=== PATIENT | female | born 1950 | race Caucasian/White ===

== ENCOUNTER 2021-12-27 06:42 | Day surgery (SDC) | payer MEDICARE, BC, SELFPAY ==
[2021-12-27] VITALS (26 sets, daily range): BP systolic 134–176; BP diastolic 72–103; PULSE 73–97; RESP 16–22; TEMP 36.5–36.8; O2SAT 92–100; BMI 38.1
[2021-12-27] MEDS: OXYCODONE (CR) 10 MG TAB.ER.12H PO (07:05)
[2021-12-27] MEDS: ACETAMINOPHEN 500 MG TABLET 1000 MG PO (07:05)
[2021-12-27] MEDS: CELECOXIB 200 MG CAPSULE PO (07:05)
[2021-12-27] MEDS: SODIUM CHLORIDE 0.9 % (FLUSH) 10 ML SYRINGE IVF (07:45)
[2021-12-27] MEDS: LACTATED RINGERS 1000 ML 1,000 ML 100 ML IV (07:45)
[2021-12-27] MEDS: fentaNYL 100 MCG/2 ML inj IVP (07:46)
[2021-12-27] MEDS: MIDAZOLAM HCL 1 MG/ML inj IVP (07:46)
--- NOTE | 2021-12-27 07:55 | SUR.PREOP ---
TIME?OUT:?0744 PT/RN/MDA?VERIFICATION?OF?SURGICAL?SITE,?PROCEDURE,?AND?CONSENT OBTAINED?PRIOR?TO?INVASIVE?PROCEDURE.
[2021-12-27] MEDS: CEFAZOLIN 2 GM INJ IVP (08:26)
--- NOTE | 2021-12-27 08:39 | SUR.OPER ---
Patient transfered from Same Day Surgery to OR2 via bed. Patient was assisted to the OR bed. Warm blankets x2 applied to provide warmth and comfort.
--- NOTE | 2021-12-27 10:00 | P.NB_ITS ---
Nerve Block Nerve Block Time Seen by Provider: 07:30 Type of block requested by surgeon for post-operative analgesia: axillary Side: right Time out performed: Yes Verification of patient name: Yes Verification of date of : Yes Site marking: site marked Name of person performing procedure: Bennett Continuous monitoring Was continuous monitoring of O2 sat, B/P, office electrician, recorded every 15 minutes?: Yes Procedure Checklist: sterile prep, needles and gloves Ultrasound guided. Images saved: Yes Medications given in 5ml increments after negative aspiration: Ropivicaine %: 0.5 mL: 30 Needle gauge: 22 Patient tolerated procedure well: Yes Additional comments: Needle noted adjacent to nerve Block Charges Block Charge (with Pro Fee): Brachial Plexus Use of Ultrasound Machine for Block: Yes- US Guidance/pain block
[2021-12-27] MEDS: fentaNYL 100 MCG/2 ML inj 50 MCG IVP ×2 (11:00→11:14)
[2021-12-27] MEDS: HYDROmorphone 0.5 mg/0.5 ml inj IVP ×3 (11:10→11:34)
--- NOTE | 2021-12-27 11:18 | W.ANESCHARGE ---
Anesthesia Charges Start Date/Time Anesthesia Start Date: 12/27/21 Anesthesia Start Time: 08:20 Stop Date/Time Anesthesia Stop Date: 12/27/21 Anesthesia Stop Time: 10:48 Summary Emergency: No
--- NOTE | 2021-12-27 11:58 | PM.ORPRC ---
Procedure Note Date of procedure: 12/27/21 Procedure: SURGEON: Daniele Bishop MD [facility] OPERATOR: Jordana Wang PA-C PREOPERATIVE DIAGNOSIS: Right thumb CMC joint osteoarthritis POSTOPERATIVE DIAGNOSIS: Right thumb CMC joint osteoarthritis NAME OF OPERATION: Right thumb CMC arthroplasty (LRTI), EPB transfer ANESTHESIA: Axillary block plus general ESTIMATED BLOOD LOSS: 0 mL COMPLICATIONS: None SPECIMENS: None DRAINS: None PREOPERATIVE ANTIBIOTICS: Ancef 2 grams INDICATIONS: The patient is a 71-year-old female with a history of right thumb CMC joint osteoarthritis. Despite appropriate nonoperative management, including activity modification, antiinflammatories, [id number]-[id number] pain medication, bracing, occupational therapy, and injections they continue to have pain and disability. Operative intervention was offered. The risks, benefits and expected outcomes were discussed in detail. These included but were not limited to: Infection, bleeding, injury to blood vessel or nerve, venous thromboembolism. All questions were answered to their satisfaction. Use of an print shop assistant was necessary for patient positioning, soft tissue retraction, wound closure and dressing and splint application. PROCEDURE: An axillary block was placed by anesthesia. The patient was placed supine on the operating room table. General anesthesia was administered. The right upper extremity was prepped and draped in the usual sterile fashion. The limb was exsanguinated with the Dannie bandage. The pneumatic tourniquet was inflated to 250 mmHg. A longitudinal incision was made just dorsal to the 1st dorsal compartment at the base of the thumb. Subcutaneous dissection was taken with tenotomy scissors. Several small crossing veins were cauterized and divided. The base of the metacarpal was exposed. The CMC joint capsule was incised longitudinally. Subperiosteal dissection of the trapezium was carried both dorsally and volarly. Likewise, the base of the thumb metacarpal was subperiosteally exposed. The radial sensory nerve was encountered and was carefully protected throughout the case. The trapezium was dissected free with the 15 blade and the [place] elevator. It was removed intact. Attention was then turned to the FCR graft harvest. A transverse incision was made at the musculotendinous junction of the FCR in the volar forearm. Subcutaneous dissection was taken with tenotomy scissors to the tendon. The tendon was freed up from the muscle fibers and was divided transversely. We then pulled the tendon graft into the distal incision at the base of the thumb. We placed a 2-0 FiberWire suture in the deep capsule. A 2.8 mm socket was drilled on the radial side of the base of the index finger metacarpal. A loop of labral tape was placed in the socket and secured with a 3 mm x 8 mm BioComposite anchor. A guide pin was drilled through the dorsum of the base of the thumb metacarpal exiting at the volar peak of the base of thumb metacarpal. A 5 mm tunnel was drilled. The tendon passer was placed through the tunnel. We pulled the tendon graft and both limbs of the labral tape into the tunnel. We maximally tensioned the graft and then placed a 4.75 x 15 mm Arthrex BioComposite tenodesis screw just distal to the graft. The graft was then pulled proximally and was secured to the dorsal bone of the base of the metacarpal with 2-0 FiberWire suture x2. We then used our previously placed 2-0 FiberWire suture in the deep capsule and folded the graft back and forth over these sutures. The graft was placed in the depth of the wound and this FiberWire suture was tied over the top to secure it in position. Given the amount of hyperextension through the thumb MP joint we elected to transfer the extensor pollicis brevis tendon. It was therefore freed up and was divided just proximal to the MP joint. It was then secured to the periosteum of the thumb metacarpal, proximal to the MP joint with a 3-0 FiberWire x2. The wound was irrigated with normal saline. The capsule was closed with a 3-0 Vicryl in an interrupted vgyzmd-[id number]-[id number] fashion. Wounds were closed with the 3-0 Vicryl and a 4-0 Monocryl. Glue was used to seal the skin. A dry dressing and short-arm thumb spica splint were applied, the tourniquet was released. Sponge and needle counts were correct x 2. The patient tolerated the procedure well. There were no apparent complications. They were carefully transferred to the hospital bed and taken to the postanesthesia care unit in satisfactory condition. PLAN: The patient will be discharged to home. They will work on ice and elevation of the hand. They will follow up in the office next week for wound check and three views of the thumb, out of the splint prior to being seen, and preparation for thumb spica cast immobilization until 6 weeks postop.
--- NOTE | 2021-12-27 12:05 | W.ANESCHARGE ---
Anesthesia Charges Start Date/Time Anesthesia Start Date: 12/27/21 Anesthesia Start Time: 08:20 Stop Date/Time Anesthesia Stop Date: 12/27/21 Anesthesia Stop Time: 10:48 Summary Emergency: No
--- NOTE | 2021-12-27 13:39 | SUR.PHASEII ---
Family member notified patient feeling nauseous. Emesis bag provided. Patient up in recliner. O2 sats 87-92%. Oxygen applied 2 L NC - O2 sats 93%. Nausea subsided. Patient provided water. Family at the bedside. Call light within reach. Senior Revenue Accountant stressed importance of pt wearing CPAP at home.
== END 2021-12-27 14:35 | disposition home or self-care (01) ==
PROVIDERS: PCP Student in an Organized Health Care Education/Training Program; Visit Provider Orthopaedic Surgery
PROC: (CPT 25447; principal; 2021-12-27 08:00)
DX: M18.11 Unilateral primary osteoarthritis of first carpometacarpal joint, right hand (principal)
CPT/HCPCS: 25447; 20924; 01830; 64415; 76942; A4580; A9270; C1713; J0690; J1100; J1170; J2250; J2405; J2704; J2795; J3010; J7120

== ENCOUNTER 2022-04-23 13:00 | Outpatient (RCR) | payer MEDICARE, BC, SELFPAY ==
--- NOTE | 2022-04-23 14:34 | OT.OPODN ---
OT Outpatient Ortho Daily Note OT Outpatient Ortho Daily Note Start: 01/02/22 13:08 Freq: Status: Active Protocol: Document 04/23/22 14:29 AMB (Rec: 04/23/22 14:32 AMB [id number]) E-signed By Ana Smith, OTR/L, CLT, COMBINATION MACHINE TOOL SETTER Type of Note Type of Note Type of Note Recert/Progress Note Visit Number [id number] Insurance Information Insurance Information Medicare B Outpatient History/Precautions Current Condition/Medical Diagnosis Referring Provider Dr Bishop Treatment Diagnosis RUE CMC Arthroplasty Date of Onset 12/27/21 Precautions Lifting Restrictions,Range of Motion Medical/Functional History Medical History Reviewed Yes Prior Level of Function/Mobility Pt was seen in OT from 05/09/21 through 06/06/21 and received services for the OA in her RUE CMC joint. Pt received partial relief with therapy and a cortisone injection, however, it did not last and pt opted for CMC arthroplasty. PMH: Active Problems (Updated 11/28 @ 10:28 by Evie Tapia) Osteoarthritis of carpometacarpal (CMC) joint of right thumb (Acute) M18.11 Seasonal allergies (Acute 20/02) J30.2 Postmenopausal state (Acute ) Z78.0 Obesity (Acute 11/11/06) E66.9 Insomnia (Acute 09/20/09) G47. 00 Hypertension (Acute 11/11/06) I10 Exercise-induced asthma (Acute 09/20/09) J45.990 Depression (Acute 11/11/06) F32.A Closed head injury (Acute) S09 .90XA Chronic sinusitis (Acute) J32. 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 Still feels weak, new exs that were issued at last visit were helpful. Pain Assessment Pain Present Pain Present Pain Reported Location Right Hand Description Dull, Achy,Throbbing Intensity .5 OT OP Daily Ortho Note/Assessment Therapeutic Exercise Therapeutic Exercise Minutes (minutes) 5 Therapeutic Exercise Comments Review of new exs for strengthening Ultrasound Ultrasound Location & Joint Position RUE radial hand/wrist/palm for anti-inflammatory and circulatory benefit as well as scar tissue management. Ultrasound Frequency & Mode 1 MHz Pulsed Intensity (w/cm2) 1.5 Ultrasound Duration 10 Manual Therapy Manual Therapy Minutes (minutes) 15 Manual Therapy Comments Provided gentle MT with focus on retrograde massage and very gentle AAROM of the RUE fingers, thumb, wrist and forearm. Scar mobilization and gentle AAROM of wrist and fingers. Goniometric Comments Goniometric Comments Goniometric Comments 04/16/22AROM of the RUE wrist flexion is 75, ext is 70, UD is 30, RD is 35, opposition is full, thumb AROM ext is limited to 45, and IP is limited to 50. 03/19/22 AROM of the RUE wrist flexion is 65, ext is 60, UD and RD are both 30, opposition is full, thumb AROM is full. 02/15/22 AROM of the RUE wrist flexion is 55, ext is 55, UD is 25, RD is 25. RUE thumb opposition is to base of 5th digit, IP is 50, MP is 50, radial abd is 45, palmar abd is 55. 01/31/22 AROM of the RUE wrist flexion is 25, extension is 30 , UD is 20, RD is 20. 01/02/22 AROM of BUE is WNL throughout with the exception of the RUE hand / wrist. AROM of the RUE wrist flexion is 10, ext is 10, UD is 5, RD is 5. AROM of the RUE forearm pronation and supination are both 70. AROM of the RUE thumb MP flexion is 10, radial and palmar abd are both 5, IP is 10. Pt is able to complete a composite fist to - 2cm from tip of 3rd digit to DPC. Pt is very guarded. Hand Pinch/Correctional Corporal Strength Hand Right Correctional Corporal Strength Position 1 (lbs) 35 Lateral Pinch Strength (lbs) 6 Three Point Pinch (lbs) 9 Left Correctional Corporal Strength Position 1 (lbs) 58 Lateral Pinch Strength (lbs) 10 Three Point Pinch (lbs) 18 Comments Comments 04/23/22 MMT of wrist flexion is 4/5, ext is 4-/5 professional engineer and pinch 4-/5. (dynamometer was not available today) Edema Assessment Location Right Hand Edema Type None Description Subjective Edema Description Tightness Additional Information Comments Minimal swelling is present at the radial hand / wrist. OT Objective Data Hand Hand Dominance Right Skin/Wounds Skin Integrity Comments Incision is completely healed. OT Problems Problems Problems Decreased Strength,Decreased Range of Motion,Decreased Dexterity,Decreased Fine Motor ,Decreased Coordination, Lifting,Gripping,Pinching Other Problems Writing,Opening Containers, Dressing,Computer,Fasteners Patient Potential Good Assessment Assessment Assessment Pt really liked the advanced strengthening, no pain with resistance. Occupational Therapy Treatment Plan - OP Potential Rehabilitation Potential Good Set Goals Goals Set with Patient Yes Goals Goals 1. Pt will be independent and compliant with HEP in order to resume full, pain-free use of the involved UE. 3 weeks 2. Pt will demonstrate full, pain-free AROM of the involved UE in order to improve ability to grasp and hold. 6 weeks 3. Pt will demonstrate pain- free professional engineer and pinch strength comparable to the uninvolved side in order to improve functional grasp, hold, reach, and lifting ability needed to complete self-care, leisure tasks, and work activities. 8 weeks. Progress set Treatment Plan Treatment Plan Evaluation,Edema Control,Joint Mobilization,Manual Therapy, Splinting,Ultrasound, Therapeutic Exercise, Therapeutic Activities,Self- Care/Home Management Expected Frequency 1-2x Week Expected Duration 8-10 Weeks OT Treatment Minutes Treatment Minutes Timed Treatment Minutes 30 Total Treatment Minutes 30 Occupational Therapy Billing Units Billing Units Manual Therapy 1 Ultrasound 1 Certification Certification I Certify That: Therapy Services Provided, Therapy Plan Established, Therapy Plan Reviewed Recertification Information Recertification Information Initial Certification Date 01/02/22 Recertification Start Date 04/02/22 Recertification Due Date 06/30/21 Reasons to Continue Skilled Therapy Pt continues to progress with improved ROM and strength. However, pt is still somewhat limited in RUE wrist and thumb ROM, also demonstrates limited professional engineer and pinch strength which impairs her ability to complete higher level cleaning and cooking tasks which require heavier gripping and pinching. Pt has missed several sessions in the month of February and March partly due to her being ill and partly due to marketing underwriter being ill. Pt will benefit from extending her therapy for an additional 6 weeks to address final strength and activity tolerance as well as to achieve full ROM. Rehabilitation Potential Good Continued Plan of Care and Interventions US, MT, TE, TA, pt education. Provider Signature Shows Agreement With POC & Medical Necessity Physician Comment/Change Comment or Changes Physician NPI Number #
== END 2022-06-26 13:11 | disposition home or self-care (01) ==
PROVIDERS: PCP Student in an Organized Health Care Education/Training Program; Visit Provider Orthopaedic Surgery
DX: Z48.89 Encounter for other specified surgical aftercare (principal); Z51.89 Encounter for other specified aftercare
CPT/HCPCS: 97035; 97110; 97140; 97165; L3806; X5282

== ENCOUNTER 2022-07-12 14:15 | Outpatient (RCR) | payer MEDICARE, BC, SELFPAY | END 2022-11-14 23:59 | disposition home or self-care (01) | PROVIDERS: PCP Student in an Organized Health Care Education/Training Program; Visit Provider Student in an Organized Health Care Education/Training Program | DX: M25.531 Pain in right wrist (principal); M65.312 Trigger thumb, left thumb; Z51.89 Encounter for other specified aftercare | CPT/HCPCS: 97035; 97140; 97165; 97535 ==

== ENCOUNTER 2024-01-07 14:45 | Outpatient (RCR) | payer MEDICARE, BC, SELFPAY | END 2024-01-07 16:06 | disposition home or self-care (01) | PROVIDERS: PCP Student in an Organized Health Care Education/Training Program; Visit Provider Family Medicine | DX: M17.12 Unilateral primary osteoarthritis, left knee (principal); Z51.89 Encounter for other specified aftercare | CPT/HCPCS: 97110; 97140; 97161 ==

== ENCOUNTER 2024-03-08 06:58 | Day surgery (SDC) | payer MEDICARE, BC, SELFPAY ==
[2024-03-08] VITALS (23 sets, daily range): BP systolic 132–176; BP diastolic 70–99; PULSE 62–87; RESP 14–22; TEMP 36.3–37.1; O2SAT 93–100; BMI 41.1
[2024-03-08] MEDS: OXYCODONE (CR) 10 MG TAB.ER.12H PO (06:59)
[2024-03-08] MEDS: ACETAMINOPHEN 500 MG TABLET 1000 MG PO ×3 (06:59→20:14)
[2024-03-08] MEDS: fentaNYL 100 MCG/2 ML inj IVP (06:59)
[2024-03-08] MEDS: LACTATED RINGERS 1000 ML 1,000 ML 100 ML IV (07:00)
[2024-03-08] MEDS: MIDAZOLAM HCL 1 MG/ML inj IVP (07:00)
--- NOTE | 2024-03-08 07:20 | W.PM.H&PU ---
History & Physical Update History & Physical Update H&P Reviewed and patient assessed: No changes noted
--- NOTE | 2024-03-08 07:23 | CRLHL7_ITS ---
For Patients: As a result of the Cures Act, medical imaging exams and procedure reports are released immediately into your electronic medical record. You may view this report before your referring provider. If you have questions, please contact your health care provider. INDICATION: Post operative knee arthroplasty TECHNIQUE: Knee radiograph 2 views left COMPARISON: 01/02/2024 FINDINGS: Bone: No acute fractures or aggressive bone lesions are identified. Joint: The patient is status post a total knee arthroplasty with patellar resurfacing. No significant knee effusion is seen. Soft tissue: Anterior subcutaneous gas and joint gas are present from recent surgery. No radiopaque foreign bodies are seen. IMPRESSION: 1. There is an unremarkable postoperative appearance of the knee arthroplasty. Dictated by: Zeferino Napoles MD @ 03/08/2024 12:56:29 (Electronically Signed)
[2024-03-08] MEDS: SODIUM CHLORIDE 0.9 % (FLUSH) 10 ML SYRINGE IVF (08:30)
[2024-03-08] MEDS: TRANEXAMIC ACID 100 MG/ML INJ 1000 MG IV (08:30)
--- NOTE | 2024-03-08 08:33 | SUR.PREOP ---
TIME?OUT:?0818 PT/RN/MDA?VERIFICATION?OF?SURGICAL?SITE,?PROCEDURE,?AND?CONSENT OBTAINED?PRIOR?TO?INVASIVE?PROCEDURE. left knee mda rn pt and consent
[2024-03-08] MEDS: CEFAZOLIN 2 GM in 0.9 % SODIUM CHLORIDE Mini-bag 100 ML IVPB ×3 (08:35→22:24)
--- NOTE | 2024-03-08 09:38 | W.ANESCHARGE ---
Anesthesia Charges Start Date/Time Anesthesia Start Date: 03/08/24 Anesthesia Start Time: 08:31 Stop Date/Time Anesthesia Stop Date: 03/08/24 Anesthesia Stop Time: 10:40 Summary Extremes of Age - Over 70 or under 1: MDA
--- NOTE | 2024-03-08 09:38 | W.PM.NB ---
Nerve Block Nerve Block Time Seen by Provider: 08:25 Date Seen: 03/08/24 Type of block requested by surgeon for post-operative analgesia: adductor canal Side: left Time out performed: Yes Verification of patient name: Yes Verification of date of : Yes Site marking: site marked Name of person performing procedure: Bennett Continuous monitoring Was continuous monitoring of O2 sat, B/P, groundwater monitoring technician, recorded every 15 minutes?: Yes Procedure Checklist: sterile prep, needles and gloves Ultrasound guided. Images saved: Yes Medications given in 5ml increments after negative aspiration: Marcaine %: 0.25 mL: 15 Needle gauge: 20 Precedex (mcg): 25 Patient tolerated procedure well: Yes Block Charges Block Charge (with Pro Fee): Femoral Nerve Use of Ultrasound Machine for Block: Yes- US Guidance/pain block
--- NOTE | 2024-03-08 09:39 | W.PM.NB ---
Nerve Block Nerve Block Time Seen by Provider: 08:25 Date Seen: 03/08/24 Type of block requested by surgeon for post-operative analgesia: geniculars Side: left Time out performed: Yes Verification of patient name: Yes Verification of date of : Yes Site marking: site marked Name of person performing procedure: Bennett Continuous monitoring Was continuous monitoring of O2 sat, B/P, traffic monitor specialist, recorded every 15 minutes?: Yes Procedure Checklist: sterile prep, needles and gloves Ultrasound guided. Images saved: Yes Medications given in 5ml increments after negative aspiration: Marcaine %: 0.25 mL: 9 Needle gauge: 25 Patient tolerated procedure well: Yes Block Charges Block Charge (with Pro Fee): Genicular Nerve Block
--- NOTE | 2024-03-08 10:02 | P.ORPRC_ITS ---
Procedure Note Date of procedure: 03/08/24 Procedure: PREOPERATIVE DIAGNOSIS: 1. Left knee osteoarthritis, primary, severe 2. Morbid obesity-BMI 41.1 POSTOPERATIVE DIAGNOSIS: 1. Left knee osteoarthritis, primary, severe 2. Morbid obesity-BMI 41.1 PROCEDURE: 1. Left total knee arthroplasty - subvastus; modifier 22... 33% added time and difficulty for this case due to patient's increased body habitus and body mass (112 kg; BMI 41.1). This increased body mass report increased retractor number, size, and number of assistants to help with the procedure. SURGEON: Satish Gleason MD. CERAMIC TILER: AIDA Laird - Of note, a skilled nurse practitioner physicians assistant was critical for this case to aid in patient positioning, tissue retraction, limb manipulation/positioning, and closure. ANESTHESIA: Spinal anesthetic EBL: 50ml IMPLANTS: DePuy J&J all cemented TKA - Attune PS femur size 4 with a 50 mm stem, size 3 tibia with a 30 mm stem, 5 mm poly spacer, 35 mm patella TOURNIQUET: 100 minutes at 300 torr COMPLICATIONS: None evident INDICATIONS: The patient is a pleasant 73-year-old female who has experienced severe left knee pain and difficulty bearing weight. Workup included x-rays which revealed severe osteoarthrosis in the knee. Given the deformity, the dysfunction, and the pain, as well as the failure of nonoperative management, recommendation was made for surgery. FINDINGS: BMI 41.1 had increased soft tissue mass and dissection as well as increased difficulty throughout the case with visualization and tissue mobility. Severe patellofemoral osteoarthrosis. Also significant chondromalacia medial and lateral compartments with degenerative mediolateral meniscus pathology. DESCRIPTION OF PROCEDURE: Following a thorough discussion of risks, benefits, and alternatives consent was obtained and the left knee was marked. The patient was brought to the operating room and placed supine on the operating table. Induction of anesthesia was undertaken. 2 g IV Ancef and 1 g tranexamic acid was administered within 1 hr of incision preoperatively. Proper time-out was performed identifying proper patient, site, procedure. The operative extremity was prepped and draped in the appropriate sterile fashion using ChloraPrep after the patient was positioned supine with all bony prominences well padded. A longitudinal, anterior, midline skin incision was made starting approximately 3cm proximal to the superior pole of the patella and advanced distal to the tibial tubercle. A subvastus approach was utilized. A medial subperiosteal sleeve was created with knife, moore elevator and curved osteotome. The retr opatellar fatpad was resected and the synovium in the suprapatellar pouch excised to visualize the anterior femoral cortex. Femoral preparation was performed via an intramedullary guide. Step drill allowed access into the femoral canal. The distal cutting guide was placed with 5? of valgus and 10 mm cut on the distal femur. Femur was sized using a posterior referencing guide in 3? of external rotation. This found have a best fit with the sizing noted above. The 4 in 1 cutting block was then placed, and the distal femur shaped accordingly. The box cut was then created and the trial implant inserted to confirm appropriate fit. The stem was then prepared with the appropriate reamers and a 50 mm stem was applied to the femur eventually. We turned our attention to the proximal tibia. Extramedullary guide was utilized for cutting with the goal of being 90 degree cut from the mechanical axis of the tibia in the varus/valgus plane utilizing tibial crest as the primary alignment. Initially a 2 mm resection was performed from the medial tibial plateau. Ultimately, balancing was achieved in both flexion and extension in both varus and valgus. Of note, the tibial stem preparation was also undertaken and a 30 mm stem was selected. The knee was able to achieve full extension as well, comfortably. The patella was initially measured and found have a thickness of 18 mm. It was resected back to approximately 13.5 mm. It was sized to be a best fit with as noted above. This was drilled, trial placed. All trials were placed and found to have an excellent stability and balance. At this stage, trial implants were removed, the knee was thoroughly irrigated with normal saline, and the cement was mixed. After irrigation, the knee was thoroughly dried, and cement placed, with the real tibial and femoral implants placed along with the patella. Trial poly spacer was placed and confirmed to have excellent range of motion and full extension, and the real poly spacer opened and inserted. All extra cement was removed, and a 3 min Betadine soak performed. Finally, a final irrigation round with normal saline was performed. Closure performed with 0 PDS and #0 Stratafix for the quad tendon/retinaculum. 2-0 Vicryl/Stratafix for the subcutaneous and 4-0 Monocryl for subcuticular closure. Dressings were applied and the patient was awoken from anesthesia after the tourniquet deflated and transferred the PACU in stable condition. A skilled nurse practitioner physicians assistant was critical for this case to aid in patient positioning, tissue retraction, bone exposure, limb manipulation/positioning, patient safety, and closure. PLAN: 1. Weight bear as tolerated operative extremity. 2. 23 hr perioperative antibiotics. 3. Ice. 4. PT/OT consults for ambulation assistance/mobility education. 5. Social work consult for discharge planning. 6. DVT prophylaxis with at SCDs and aspirin twice daily.
--- NOTE | 2024-03-08 10:38 | W.ANESCHARGE ---
Anesthesia Charges Start Date/Time Anesthesia Start Date: 03/08/24 Anesthesia Start Time: 08:31 Stop Date/Time Anesthesia Stop Date: 03/08/24 Anesthesia Stop Time: 10:40
[2024-03-08] MEDS: HYDROmorphone 0.5 mg/0.5 ml inj IVP ×6 (12:00→23:30)
--- NOTE | 2024-03-08 13:07 | PM.IMCN1 ---
Date of Consult Patient: Christopher Patient Consult date: 03/08/24 Requesting Physician: Orthopedics Primary Care Provider: SHAWN MAIN DO Consult Narrative Reason for consult: Hypertension Narrative: Hailey Diallo is a 73 year old female with history of hypertension and known cardiac murmur who underwent an elective left total knee arthroplasty today by Dr. Gleason for severe osteoarthritis. She has a personal history of panic attack with IV placement and took sedative prior to IV insertion today. She told me that her preop time here went very well and she is very happy with the experience today. She is feeling well after surgery and has no complaints. Her pain is currently well controlled. Review of Systems Status of ROS: Reports: 6 or more systems reviewed and unremarkable except as noted in History and below [facility] Medical History (Updated 03/08/24 @ 13:36 by Xiao Bonilla MD) Atherosclerotic coronary vascular disease ?I25.10 - Atherosclerotic heart disease of [place] coronary artery without angina pectoris (ICD-10) Abnormal echocardiogram ?R93.1 - Abnormal findings on diagnostic imaging of heart and coronary circulation (ICD-10) Ascending aorta dilatation ?I77.810 - Thoracic aortic ectasia (ICD-10) Abnormal stress test ?R94.39 - Abnormal result of other cardiovascular function study (ICD-10) Elevated coronary artery calcium score ?R93.1 - Abnormal findings on diagnostic imaging of heart and coronary circulation (ICD-10) Seasonal allergies (09/20/09) ?J30.2 - Other seasonal allergic rhinitis (ICD-10) Postmenopausal state (11/11/06) ?Z78.0 - Asymptomatic menopausal state (ICD-10) Obesity (11/11/06) ?E66.9 - Obesity, unspecified (ICD-10) Chronic sinusitis ?J32.9 - Chronic sinusitis, unspecified (ICD-10) Closed head injury ?S09.90XA - Unspecified injury of head, initial encounter (ICD-10) Hypertension (11/11/06) ?I10 - Essential (primary) hypertension (ICD-10) Exercise-induced asthma (09/20/09) ?J45.990 - Exercise induced bronchospasm (ICD-10) H/O tinnitus (11/11/06) ?Z86.69 - Personal history of other diseases of the nervous system and sense organs (ICD-10) Colonoscopy planned ACP (advance care planning) ?Z71.89 - Other specified counseling (ICD-10) Adenomatous colon polyp ?D12.6 - Benign neoplasm of colon, unspecified (ICD-10) Depression with anxiety ?F41.8 - Other specified anxiety disorders (ICD-10) Ankle enthesopathy ?M77.50 - Other enthesopathy of unspecified foot and ankle (ICD-10) Surgical History (Updated 03/08/24 @ 13:36 by Xiao Bonilla MD) Status post total left knee replacement ?Z96.652 - Presence of left artificial knee joint (ICD-10) History of phacoemulsification of cataract of both eyes with intraocular lens implantation ?Z98.41 - Cataract extraction status, right eye (ICD-10) ?Z98.42 - Cataract extraction status, left eye (ICD-10) ?Z96.1 - Presence of intraocular lens (ICD-10) History of repair of right rotator cuff (~03/2012) ?Z98.890 - Other specified postprocedural states (ICD-10) History of arthroplasty of finger of right hand (12/27/21) ?Z96.691 - Finger-joint replacement of right hand (ICD-10) History of bladder suspension procedure ?Z98.890 - Other specified postprocedural states (ICD-10) ?Z87.448 - Personal history of other diseases of urinary system (ICD-10) H/O: hysterectomy ?Z90.710 - Acquired absence of both cervix and uterus (ICD-10) Family History (Updated 03/08/24 @ 13:17 by Xiao Bonilla MD) Aunt Ovarian cancer Mother Colorectal cancer, Onset Age: 68 Schizophrenia Father Heart disease High blood pressure Social History (Updated 03/08/24 @ 13:18 by Xiao Bonilla MD) Narrative: Never smoker, has not had alcohol since college, denies recreational drugs. Smoking Status: Never smoker How often do you have a drink containing alcohol: never How often do you have six or more drinks on one occasion: Never AUDIT-C Alcohol total score: 0 Non-prescribed substance use: denies use Caffeine: Yes (coffee) Are you using contraception or practicing any form of control: No Meds Home Medications and Allergies Home Medications ?Medication ?Instructions ?Recorded ?Confirmed ?Type hydrochlorothiazide 25 mg tablet 25 mg PO DAILY 11/28/21 03/08/24 History losartan 100 mg tablet 100 mg PO DAILY 11/28/21 03/08/24 History multivitamin 1 tab PO QAM 11/28/21 03/08/24 History trazodone 50 mg tablet 50 mg PO HS 11/28/21 03/08/24 History venlafaxine 75 mg capsule,extended 75 mg PO HS 11/28/21 03/08/24 History release 24 hr calcium 600 mg (as carbonate)-vit 1 tab PO DAILY 12/26/21 03/08/24 History D3 10 mcg (400 unit)-minerals tablet fluticasone propionate 50 1 spray intranasal DAILY PRN 12/26/21 03/08/24 History mcg/actuation nasal spray,suspension (Allergy Relief (fluticasone)) celecoxib 200 mg capsule 200 mg PO Q12H 01/02/24 03/08/24 History isosorbide mononitrate 30 mg 30 mg PO DAILY 01/02/24 03/08/24 History tablet,extended release 24 hr rosuvastatin 40 mg tablet 40 mg PO HS 01/02/24 03/08/24 History albuterol sulfate 90 mcg/actuation 1 - 2 inh inhalation Q4H PRN 03/08/24 03/08/24 History aerosol inhaler aspirin 81 mg capsule 81 mg PO DAILY 03/08/24 03/08/24 History fexofenadine 180 mg tablet 180 mg PO DAILY 03/08/24 03/08/24 History (Allergy Relief (fexofenadine)) Allergies Allergy/AdvReac Type Severity Reaction Status Date / Time amlodipine Allergy Edema Verified 03/08/24 07:21 lisinopril Allergy Rash Verified 03/08/24 07:21 sulfamethoxazole (From Allergy Itching Verified 03/08/24 07:21 Bactrim) terbinafine Allergy Rash Verified 03/08/24 07:21 trimethoprim (From Bactrim) Allergy Itching Verified 03/08/24 07:21 Exam Narrative: Exam Narrative: General: No acute distress. Awake alert oriented x3. Pleasant. HEENT: Normocephalic atraumatic, pupils equally round and reactive to light and accommodation. Oropharynx clear. Mucous membranes are moist. No cervical lymphadenopathy, thyromegaly or carotid bruits. No JVD. Cardiovascular: Regular rate and rhythm. No murmurs, gallops, or rubs. Chest: No increased work of breathing. Clear to auscultation bilaterally. No crackles or wheezes. Abdomen: Bowel sounds present. Soft, nondistended, nontender. No hepatosplenomegaly or masses. Extremities: Left knee bandage is clean, dry, and intact. Trace bilateral lower extremity edema, no cyanosis or clubbing. Skin: No jaundice, no pallor, no rashes. Const: Vital Signs, click to edit/add: Vital Signs - 24 hr 03/08/24 07:50 03/08/24 08:27 03/08/24 10:35 Temperature 97.8 F 97.4 F L Pulse Rate 84 76 71 Respiratory Rate 18 18 14 Blood Pressure 160/86 H 159/87 H 160/89 H Pulse Oximetry 93 100 100 Oxygen Delivery Me thod Room Air Nasal Cannula Room Air Oxygen Flow Rate 3 03/08/24 10:40 03/08/24 10:45 03/08/24 10:50 Temperature Pulse Rate 69 68 66 Respiratory Rate 14 16 16 Blood Pressure 176/92 H 170/88 H 157/99 H Pulse Oximetry 98 98 98 Oxygen Delivery Me thod Room Air Room Air Room Air Oxygen Flow Rate 03/08/24 10:55 03/08/24 11:00 03/08/24 11:05 Temperature 97.8 F Pulse Rate 66 65 64 Respiratory Rate 16 16 16 Blood Pressure 132/73 141/86 H 142/70 H Pulse Oximetry 98 99 100 Oxygen Delivery Me thod Room Air Room Air Room Air Oxygen Flow Rate Assessment and Plan Assessment and plan (1) Status post total left knee replacement: Problem comment: - 03/08/24 Dr. Gleason - routine post op cares - VTE prophylaxis with aspirin twice a day and SCDs Status: Acute (2) Osteoarthritis of left knee: Status: Chronic (3) Insomnia: Problem comment: - Continue trazadone Status: Acute (4) Hypertension: Problem comment: - Hold losartan and HCTZ tomorrow morning. If hypertensive, can restart these, otherwise restart upon return home. Status: Chronic (5) Atherosclerotic coronary vascular disease: Problem comment: - Elevated coronary artery calcium score and abnormal stress test early 2023, with no ischemia and resolved apical anterior wall ischemia on PET-CT myocardial perfusion 10/22/2023. Was started on Imdur. - asymptomatic. Monitor for symptoms. Status: Chronic
[2024-03-08] MEDS: LACTATED RINGERS 1000 ML 1,000 ML 75 ML IV (13:50)
[2024-03-08] MEDS: OXYCODONE 5 MG TABLET PO ×4 (14:55→23:05)
--- NOTE | 2024-03-08 20:06 | PC.NURSE ---
End of shift note: Pt arrived to the unit @ 1110. Pt AxOx4, calm, and pleasant. CMS intact. Nausea was present upon admission, database report writer utilized aromatherapy patch. Relief noted. Pt reported pain 0-9/10 throughout the shift. Tray Delivery Aide utilized repositioning and PRN pain medication. See MAR. PT was with Pt @ 1310, was unable to get Pt out of bed. Bladder scanned Pt at 4 hour ilda, 110cc found. Pt was given a 500cc bolus of LR per Dr. Arriaza orders for conserving fluid purposes. Pt urinated via toilet @ 1630: 375cc. A1 GB and W, tolerating well. SL L hand. Pt tolerating reg diet/fluids well. Pain being managed with ongoing evaluation. Pt is resting watching television, call light in reach. Active ice applied.
[2024-03-08] MEDS: VENLAFAXINE ER 75 MG CAPSULE PO (22:25)
[2024-03-08] MEDS: SENNOSIDES 1 TAB TABLET 2 TAB PO (22:25)
[2024-03-08] MEDS: TRAZODONE HCL 50 MG TABLET PO (22:25)
[2024-03-08] MEDS: ASPIRIN 81 MG TABLET EC PO (22:25)
[2024-03-08] MEDS: ROSUVASTATIN CALCIUM 10 MG TABLET 40 MG PO (22:25)
[2024-03-09] MEDS: LORazepam 0.5 MG TABLET PO (01:19)
[2024-03-09 01:21] VITALS: BP 147/65; PULSE 93; RESP 16; TEMP 36.8; O2SAT 95
[2024-03-09] MEDS: OXYCODONE 5 MG TABLET PO ×4 (01:26→12:42)
[2024-03-09] MEDS: ACETAMINOPHEN 500 MG TABLET 1000 MG PO ×2 (01:30→07:57)
[2024-03-09] MEDS: CEFAZOLIN 2 GM in 0.9 % SODIUM CHLORIDE Mini-bag 100 ML IVPB (06:14)
[2024-03-09 06:36] LABS: Basophils Absolute Auto 0.02 K/uL (0.00-0.30); Basophils Percent Auto 0.3 % (0.0-3.0); Eosinophils Absolute Auto 0.14 K/uL (0.00-0.50); Eosinophils Percent Auto 2.2 % (0.0-7.0); Hematocrit 41.4 % (33.0-51.0); Hemoglobin* 13.2 gm/dL (12.0-16.0); Immature Granulocytes Abs Auto 0.02 K/uL (0.00-0.30); Immature Granulocytes Pct Auto 0.3 %; Lymphocytes Absolute Auto 1.27 K/uL (0.90-2.90); Lymphocytes Percent Auto 20.2 % (20-44); Mean Corpuscular HGB Conc 32 gm/dL (32-36); Mean Corpuscular Hemoglobin 30 pg (26-34); Mean Corpuscular Volume 94 fL (80-100); Monocytes Percent Auto 10.8 % (0.0-11.0); Neutrophils Absolute Auto 4.17 K/uL (1.7-7.0); Neutrophils Percent Auto 66.2 % (42.0-72.0); Platelet Count* 277 K/uL (140-440); RDW Coefficient of Variation % 13.2 % (11.5-15.5); Red Blood Count 4.41 m/uL (4.00-5.20)
--- NOTE | 2024-03-09 06:43 | PC.NURSE ---
Pt alert and oriented x3. Afebrile. Pt reports 5-9/10 pain in left knee, pain managed with cold pack and scheduled and PRN medications. Left knee dressing is CDI. Pt is up SBA with walker, voiding and tolerating a regular diet. ?
[2024-03-09 06:44] LABS: Potassium* 3.8 mmol/L (3.6-5.1); Sodium* 135 mmol/L (135-149)
[2024-03-09 06:47] VITALS: BP 153/66; PULSE 85; RESP 16; TEMP 37.1; O2SAT 95
[2024-03-09 06:47] LABS: Blood Urea Nitrogen* 12 mg/dL (7-30); Creatinine* 0.6 mg/dL (0.5-1.5); Est. Creatinine Clearance* 46.43; Estimated Glomerular Filt Rate 96 ml/min
[2024-03-09 06:50] LABS: Slide Review Reflex No
[2024-03-09] MEDS: ISOSORBIDE MONONITRATE ER 30 MG TAB PO (08:40)
[2024-03-09] MEDS: SENNOSIDES 1 TAB TABLET 2 TAB PO (08:41)
[2024-03-09] MEDS: ASPIRIN 81 MG TABLET EC PO (08:41)
--- NOTE | 2024-03-09 08:43 | PM.ORPN ---
Subjective Subjective Date Seen: 03/09/24 Principal diagnosis: Status postop day 1 left total knee arthroplasty Interval history: Patient reports doing well. No acute events over night. Yesterday had some nausea which has since been resolved with aroma therapy patch. Pain managed with scheduled and PRN medications, ice. DVT prophylaxis: 81 mg aspirin by mouth twice daily, SCDs, walking. Denies fevers, chills, aches, N/V, CP, SOB/WHITMORE, or lightheadedness. Ortho Exam Narrative Exam Narrative: -Patient appears comfortable; no apparent acute distress -Alert and oriented times 3 -Operative knee mildly swollen; soft tissues supple; no ecchymosis; no erythematous streaking Warmth appropriate -Surgical dressing clean, dry, intact; no drainage -Bilateral calfs soft; no significant swelling, edema, tenderness, erythema, discoloration, warmth, or palpable cords -2+ DP/PT pulses, intact dermatomes and myotomes distally (5/5 strength) Const Vital Signs, click to edit/add: Vital Signs - 24 hr 03/08/24 10:35 03/08/24 10:40 03/08/24 10:45 Temperature 97.4 F L Pulse Rate 71 69 68 Pulse Rate [Left Pulse Oximeter] Respiratory Rate 14 14 16 Blood Pressure 160/89 H 176/92 H 170/88 H Blood Pressure [Right Arm] Blood Pressure [Right Femoral Artery] Pulse Oximetry 100 98 98 Oxygen Delivery Method Room Air Room Air Room Air Oxygen Flow Rate 03/08/24 10:50 03/08/24 10:55 03/08/24 11:00 Temperature Pulse Rate 66 66 65 Pulse Rate [Left Pulse Oximeter] Respiratory Rate 16 16 16 Blood Pressure 157/99 H 132/73 141/86 H Blood Pressure [Right Arm] Blood Pressure [Right Femoral Artery] Pulse Oximetry 98 98 99 Oxygen Delivery Method Room Air Room Air Room Air Oxygen Flow Rate 03/08/24 11:05 03/08/24 11:10 03/08/24 11:25 Temperature 97.8 F 97.6 F 97.7 F Pulse Rate 64 63 65 Pulse Rate [Left Pulse Oximeter] Respiratory Rate 16 14 14 Blood Pressure 142/70 H 148/80 H 168/87 H Blood Pressure [Right Arm] Blood Pressure [Right Femoral Artery] Pulse Oximetry 100 97 97 Oxygen Delivery Method Room Air Room Air Room Air Oxygen Flow Rate 03/08/24 11:40 03/08/24 11:55 03/08/24 12:10 Temperature 97.7 F 97.5 F L 97.6 F Pulse Rate 62 72 70 Pulse Rate [Left Pulse Oximeter] Respiratory Rate 16 16 16 Blood Pressure 160/89 H 140/88 H 158/79 H Blood Pressure [Right Arm] Blood Pressure [Right Femoral Artery] Pulse Oximetry 98 97 95 Oxygen Delivery Method Room Air Room Air Room Air Oxygen Flow Rate 03/08/24 12:40 03/08/24 13:10 03/08/24 14:10 Temperature 97.8 F 97.4 F L 97.4 F L Pulse Rate 69 75 71 Pulse Rate [Left Pulse Oximeter] Respiratory Rate 16 16 14 Blood Pressure 153/92 H 150/75 H 154/84 H Blood Pressure [Right Arm] Blood Pressure [Right Femoral Artery] Pulse Oximetry 98 100 97 Oxygen Delivery Method Room Air Room Air Room Air Oxygen Flow Rate 03/08/24 15:00 03/08/24 15:00 03/08/24 15:10 Temperature 98.6 F Pulse Rate 73 Pulse Rate [Left Pulse Oximeter] Respiratory Rate 16 16 Blood Pressure 170/96 H Blood Pressure [Right Arm] Blood Pressure [Right Femoral Artery] Pulse Oximetry 96 96 96 Oxygen Delivery Method Room Air Room Air Oxygen Flow Rate 03/08/24 16:10 03/08/24 17:10 03/08/24 19:33 Temperature 98.3 F 98.5 F 98.8 F Pulse Rate 78 87 Pulse Rate [Left Pulse Oximeter] 80 Respiratory Rate 16 16 20 Blood Pressure 161/85 H 167/87 H Blood Pressure [Right Arm] 156/84 H Blood Pressure [Right Femoral Artery] Pulse Oximetry 97 95 94 Oxygen Delivery Method Room Air Room Air Room Air Oxygen Flow Rate 03/08/24 23:34 03/08/24 23:34 03/08/24 23:34 Temperature 98.3 F Pulse Rate Pulse Rate [Left Pulse Oximeter] 74 Respiratory Rate 22 22 Blood Pressure Blood Pressure [Right Arm] 159/72 H Blood Pressure [Right Femoral Artery] Pulse Oximetry 97 97 97 Oxygen Delivery Method Room Air Room Air Oxygen Flow Rate 03/09/24 01:21 03/09/24 06:47 03/09/24 06:47 Temperature 98.2 F 98.8 F Pulse Rate Pulse Rate [Left Pulse Oximeter] 93 85 Respiratory Rate 16 16 Blood Pressure Blood Pressure [Right Arm] 147/65 H Blood Pressure [Right Femoral Artery] 153/66 H Pulse Oximetry 95 95 95 Oxygen Delivery Method Room Air Room Air Oxygen Flow Rate 3 03/09/24 06:47 Temperature Pulse Rate Pulse Rate [Left Pulse Oximeter] Respiratory Rate 16 Blood Pressure Blood Pressure [Right Arm] Blood Pressure [Right Femoral Artery] Pulse Oximetry 95 Oxygen Delivery Method Room Air Oxygen Flow Rate Assessment and Plan Assessment and plan (1) Status post total left knee replacement: Problem details: - 03/08/24 Dr. Gleason - routine post op cares - VTE prophylaxis with aspirin twice a day and SCDs Status: Acute (2) Osteoarthritis of left knee: Status: Chronic (3) Insomnia: Problem details: - Continue trazadone Status: Acute (4) Hypertension: Problem details: - Hold losartan and HCTZ tomorrow morning. If hypertensive, can restart these, otherwise restart upon return home. Status: Chronic (5) Atherosclerotic coronary vascular disease: Problem details: - Elevated coronary artery calcium score and abnormal stress test early 2023, with no ischemia and resolved apical anterior wall ischemia on PET-CT myocardial perfusion 10/22/2023. Was started on Imdur. - asymptomatic. Monitor for symptoms. Status: Chronic Plan - Complete 23 hour perioperative antibiotics. - PT/OT consult for education and assistance. - Social work consult for discharge planning - Prescribed analgesics as needed - DVT prophylaxis: 81 mg aspirin by mouth twice daily, walking, and SCDs - Anticipation is for discharge to home with family/friends today 03/09/2024 if the patient remains medically stable, pain is controlled, and they are safe with mobilization. She is little worried about the stairs in her home, which showed discussed with PT/OT.
[2024-03-09 09:00] VITALS: BP 185/90; PULSE 80; O2SAT 98
[2024-03-09 09:05] VITALS: BP 198/92; PULSE 82; O2SAT 98
--- NOTE | 2024-03-09 09:34 | PC.NURSE ---
OT CALLED NURSE TO ROOM FOR PT C/O DIZZINESS THAT STARTED WITH STANDING AND NOT RESOLVING AFTER SITTING FOR 2-3 MINUTES. PT IN RECLINER WITH FEET UP. A&O, ANSWERS QUESTIONS APPROPRIATELY. PT STATES THAT DIZZINESS HAPPENS WHEN HER BLOOD PRESSURE IS HIGH. 0900 BP 185/90, HR 80, OXYGEN SATURATIONS 98%. 09 DIZZINESS CONTINUES, BP 198/92, HR 82, 98% OXYGEN SATURATIONS. DR. CASTANO AWARE AND GOING TO ASSESS PATIENT.
[2024-03-09] MEDS: LOSARTAN POTASSIUM 50 MG TABLET 100 MG PO (10:36)
[2024-03-09] MEDS: hydroCHLOROthiazide 25 MG TABLET PO (10:36)
[2024-03-09 11:29] VITALS: BP 149/83; PULSE 81; RESP 18; TEMP 37; O2SAT 95
--- NOTE | 2024-03-09 12:57 | PM.IMPN1 ---
Progress Note: A&P Assessment and plan (1) Hypertensive urgency: Problem details: - blood pressure medications were held today as patients often experience lower blood pressures than usual on the 1st postop day after receiving anesthesia for joint surgery, however this patient's blood pressure was markedly elevated this morning as she started having symptoms of lightheadedness and blurry vision. There were no focal neurologic symptoms. Patient was given her normal antihypertensives which improved her blood pressure to 149/83 in symptoms resolved. - monitor blood pressure during therapies during early afternoon today and if she does well with that and has no further symptoms, it would be okay to discharge home. Status: Acute (2) Hypertension: Problem details: -restarted losartan and hydrochlorothiazide. Status: Chronic (3) Status post total left knee replacement: Problem details: - 03/08/24 Dr. Gleason - routine post op cares - VTE prophylaxis with aspirin twice a day Status: Acute (4) Osteoarthritis of left knee: Status: Chronic (5) Atherosclerotic coronary vascular disease: Problem details: - Elevated coronary artery calcium score and abnormal stress test early 2023, with no ischemia and resolved apical anterior wall ischemia on PET-CT myocardial perfusion 10/22/2023. Was started on Imdur. - asymptomatic. Status: Chronic Subjective Time Seen by Provider: 09:00 Date Seen: 03/09/24 Interval history: Hailey did well overnight, but had an episode of lightheadedness associated with elevated BP this morning. She says she often feels this way when her BP gets too high. She had just taken 10 mg of oxycodone prior to this feeling. Her SBP was 180-190s. She felt like she couldn't focus her gaze (which is also a symptom she's had before with high BP), but denies any vision loss or other vision changes. Denies COSTELLO, CP, SOB, numbness, weakness or tingling. She received her usual antihypertensives and her blood pressure came down to 149/83. Her symptoms resolved. Exam Narrative: Exam Narrative: Exam at 9:05 am while patient was symptomatic. General: No acute distress. Awake, alert, oriented x3. No pallor. No jaundice. Oropharynx: Clear. Mucous membranes moist. Cardiovascular: Regular rate and rhythm. No murmurs, gallops, or rubs. Respiratory: Clear to auscultation bilaterally. No wheezes or crackles. Abdomen: Bowel sounds present. Soft, nondistended, nontender. Extremities: Left knee bandage is clean, dry, and intact. Neuro: There are no focal deficits. Romberg is negative. Gait is within normal limits. Cranial nerves 2-12 are intact. Extraocular movements are full. No nystagmus. No facial asymmetry. Tongue is midline. Peripheral vision and vision are grossly intact. Strength is 5/5 in all 4 extremities. Light touch sensation is intact in face body and extremities. Const: Vital Signs, click to edit/add: Vital Signs - 24 hr 03/08/24 13:10 03/08/24 14:10 03/08/24 15:00 Temperature 97.4 F L 97.4 F L Pulse Rate 75 71 Pulse Rate [Left P ulse Oximeter] Respiratory Rate 16 14 Blood Pressure 150/75 H 154/84 H Blood Pressure [Ri ght Arm] Blood Pressure [Ri ght Femoral Artery ] Pulse Oximetry 100 97 96 Oxygen Delivery Me thod Room Air Room Air Oxygen Flow Rate 03/08/24 15:00 03/08/24 15:10 03/08/24 16:10 Temperature 98.6 F 98.3 F Pulse Rate 73 78 Pulse Rate [Left P ulse Oximeter] Respiratory Rate 16 16 16 Blood Pressure 170/96 H 161/85 H Blood Pressure [Ri ght Arm] Blood Pressure [Ri ght Femoral Artery ] Pulse Oximetry 96 96 97 Oxygen Delivery Ms thod Room Air Room Air Room Air Oxygen Flow Rate 03/08/24 17:10 03/08/24 19:33 03/08/24 23:34 Temperature 98.5 F 98.8 F Pulse Rate 87 Pulse Rate [Left P ulse Oximeter] 80 Respiratory Rate 16 20 Blood Pressure 167/87 H Blood Pressure [Ri ght Arm] 156/84 H Blood Pressure [Ri ght Femoral Artery ] Pulse Oximetry 95 94 97 Oxygen Delivery Me thod Room Air Room Air Oxygen Flow Rate 03/08/24 23:34 03/08/24 23:34 03/09/24 01:21 Temperature 98.3 F 98.2 F Pulse Rate Pulse Rate [Left P ulse Oximeter] 74 93 Respiratory Rate 22 22 16 Blood Pressure Blood Pressure [Ri ght Arm] 159/72 H 147/65 H Blood Pressure [Ri ght Femoral Artery ] Pulse Oximetry 97 97 95 Oxygen Delivery Me thod Room Air Room Air Room Air Oxygen Flow Rate 03/09/24 06:47 03/09/24 06:47 03/09/24 06:47 Temperature 98.8 F Pulse Rate Pulse Rate [Left P ulse Oximeter] 85 Respiratory Rate 16 16 Blood Pressure Blood Pressure [Ri ght Arm] Blood Pressure [Ri ght Femoral Artery ] 153/66 H Pulse Oximetry 95 95 95 Oxygen Delivery Me thod Room Air Room Air Oxygen Flow Rate 3 03/09/24 09:00 03/09/24 09:05 03/09/24 11:29 Temperature 98.6 F Pulse Rate Pulse Rate [Left P ulse Oximeter] 80 82 81 Respiratory Rate 18 Blood Pressure Blood Pressure [Ri ght Arm] 185/90 H 198/92 H 149/83 H Blood Pressure [Ri ght Femoral Artery ] Pulse Oximetry 98 98 95 Oxygen Delivery Me thod Room Air Room Air Room Air Oxygen Flow Rate Labs Labs: Laboratory Results - last 24 hr 03/09/24 06:04 WBC 6.30 RBC 4.41 Hgb 13.2 Hct 41.4 MCV 94 MCH 30 MCHC 32 RDW Coeff of [place] 13.2 Plt Count 277 Neut % (Auto) 66.2 Lymph % (Auto) 20.2 [place] % (Auto) 10.8 Eos % (Auto) 2.2 Baso % (Auto) 0.3 Neut # (Auto) 4.17 Lymph # (Auto) 1.27 [place] # (Auto) 0.70 Eos # (Auto) 0.14 Baso # (Auto) 0.02 Abs Immat Gran (auto) 0.02 Imm/Tot Granulo (auto) 0.3 Sodium 135 Potassium 3.8 BUN 12 Creatinine 0.6 Estimated Creat Clear 46.43 Estimated GFR 96
--- NOTE | 2024-03-09 13:01 | REH.OT ---
OT: Order received, chart reviewed, initially seen at 0900 for eval and patient was transferring with SBA, but patient's activity tolerance with transfers and dressing was limited by c/o feeling lightheaded seated and standing. Patient had received pain meds 20 minutes prior to early session, Seated BP 198/9, O2 sats on RA 94-97%, HR 81-86bpm. Nsg informed when patient's symptoms not resolving when seated with LEs elevated. Patient reports she has felt these symptoms in the past when BP is elevated. Nsg and MD assessing further. OT returned to see at 1220 and patient reports symptoms improving. Patient was up to bathroom with FWW with SBA, able to participate in instruction with AE for dressing tasks. Son present and addressed questions regarding DME, home modifications and community resources. Son will be staying with patient into next week to provide assistance, anticipating return home with family support and she has OP PT scheduled.
== END 2024-03-09 14:17 | disposition home or self-care (01) ==
LOC: OR 07:02 → MEDSURG 12:03
PROVIDERS: PCP Student in an Organized Health Care Education/Training Program; Visit Provider Orthopaedic Surgery Sports Medicine
PROC: (CPT 27447; principal; 2024-03-08 08:45)
DX: M17.12 Unilateral primary osteoarthritis, left knee (principal); E66.01 Morbid (severe) obesity due to excess calories; Z68.41 Body mass index [BMI] 40.0-44.9, adult; I16.0 Hypertensive urgency; R42 Dizziness and giddiness; G89.18 Other acute postprocedural pain; R11.0 Nausea; R01.1 Cardiac murmur, unspecified; I10 Essential (primary) hypertension; I25.10 Atherosclerotic heart disease of native coronary artery without angina pectoris; I77.810 Thoracic aortic ectasia; J45.990 Exercise induced bronchospasm; F41.8 Other specified anxiety disorders; G47.00 Insomnia, unspecified
CPT/HCPCS: 27447; 01402; 36415; 64447; 64454; 73560; 76942; 82565; 84132; 84295; 84520; 85025; 97110; 97116; 97162; 97165; 97530; 97535; 99100; A9270; C1776; J0665; J0690; J1100; J1171; J2250; J2405; J2704; J3010; J7120

== ENCOUNTER 2024-03-11 12:47 | Outpatient (CLI) | payer MEDICARE, BC, SELFPAY ==
--- OUTSIDE RECORDS SUMMARY | 2024-03-13 21:01 | XMS_ITS | Clinical Summary ---
Author Organization [facility] Address [place], [place] [address] Care Team Providers Care Mill Supervisor Name Role Phone Susu Linda DO Primary Care Provider [phone] Allergies Active Allergy Reactions Criticality Noted Date [...] Department Care Team Description 03/11/2024 Nurse Triage [facility] [address] [place] [address] Susu Linda DO High Blood Pressure 03/11/2024 Telephone [facility] [address] [place] [address] Susu Linda DO Medication Management (Nauseous) 03/08/2024 Orders Only [facility] Scanner 1 scan: (1-Ord) [facility], KNEE LT 2V, 03/08/2024 02/23/2024 11:00 AM CDT Preop Visit [facility] [address] [facility] [place] [address] Susu Linda DO Preoperative Exam ([facility] - 03/08/2024 - LEFT total knee ) 02/23/2024 Travel 02/19/[address] [place] [address] Moustapha Kinsey MD Results (lab) 02/18/2024 9:15 AM CDT Orders Only [facility] [address] [facility] [place] [address] Lab, [place] Lab 02/18/2024 Travel 02/13/2024 Travel 02/10/2024 Orders Only [address] [place] [address] Moustapha Kinsey MD Lab 01/23/2024 10:00 AM CDT Office Visit [facility] [address] [facility] [address] [place] [address] Moustapha Kinsey MD Teleheart, Nam Follow Up (Coronary atherosclerosis/Echo 11/24/23 ) 01/23/2024 Telephone [facility] [address] [facility] [place] [facility] [place] [address] Susu Linda DO Lab (Possible orders needed) 01/23/2024 Travel 01/21/2024 Telephone [facility] [address] [place] [address] Susu Linda DO Covid-19 Positive Result 01/15/2024 11:25 AM CDT Preop Visit [facility] [address] [place] [address] Susu Linda DO Preoperative Exam (Dr. Fontaine - LEFT total knee - 01/28/2024 - [facility] ) 01/15/2024 Travel 01/12/2024 Travel 12/25/2023 Telephone [facility] [address] [place] [address] Kings Loaiza MD Results 12/23/2023 11:15 AM CDT Ancillary Procedure [facility] Specialty [facility] [address] [facility] [address] [place] [address] 12/23/2023 Travel from Last 3 Months Immunizations [...] CDT Respiratory Rate 16 05/13/2017 8:44 AM BODY TRIMMER UPHOLSTERER Oxygen Saturation 98% 02/23/2024 11: 05 AM [...] Diagnosis Comments SCAN-RADIOLOGY REPORT 03/08/2024 12:00 AM BODY TRIMMER UPHOLSTERER HEMOGLOBIN Routine 02/18/2024 9:10 AM CDT Pre-op [...] 2 SITES AXIAL Routine 05/22/2023 10:57 AM BODY TRIMMER UPHOLSTERER Osteoporosis screening Asymptomatic menopausal state XR MAMMO BILAT SCREENING Routine 05/16/2023 2:52 PM BODY TRIMMER UPHOLSTERER Visit for screening mammogram ANTI HCV Routine 03/23/2014 7:39 AM BODY TRIMMER UPHOLSTERER Need for hepatitis C screening test from Last 3 Months or Most Recently Relevant to Health Maintenance Results * SCAN-RADIOLOGY REPORT (03/08/2024 12:00 AM BODY TRIMMER UPHOLSTERER) Anatomical Region Laterality Modality Other Scanner OTHER * LIPID PANEL W REFLEX MEASURED LDL (02/18/2024 9:10 AM CDT) CHOLESTEROL, TOTAL 135 <200 mg/dL [facility] HDL CHOLESTEROL 63 > OR = 50 mg/dL [facility] TRIGLYCERIDES 84 <150 mg/dL [facility] [...] LDL-C. Dannie MASTERS et al. EDNA. 2013;310(19): 4906-9289 (http://education.Mindframe/faq/FJH749) CHOL/HDLC RATIO 2.1 <5.0 (calc) [facility] NON HDL CHOLESTEROL 72 <130 mg/dL (calc) [facility] Comment: For patients with diabetes plus 1 major ASCVD risk factor, treating to a non-HDL-C goal of <100 mg/dL (LDL-C of <70 mg/dL) is considered a therapeutic option. Blood BLOOD SPECIMEN / Unknown 02/18/2024 9:10 AM CDT 02/18/2024 9:10 AM CDT Moustapha Kinsey MD CHEMISTRY [facility] [address] [place] [address], [facility] [address] [place] [address] * HEMOGLOBIN (02/18/2024 9:10 AM CDT) Only the most recent of2 resultswithin the time period is included. HEMOGLOBIN 14.3 11.7 - 15.5 g/dL [facility] Blood BLOOD SPECIMEN / Unknown 02/18/2024 9:10 AM CDT 02/18/2024 9:10 AM CDT Susu Linda DO HEMATOLOGY Performing Organization Address City/[facility]/ZIP Co de Phone Number [employer] [facility] [address] [place] [address], [facility] [address] [place] [address] * POTASSIUM (02/18/2024 9:10 AM CDT) Only the most recent of2 resultswithin the time period is included. [facility] POTASSIUM 4.2 3.5 - 5.3 mmol/L [facility] Blood BLOOD SPECIMEN / Unknown 02/18/2024 9:10 AM CDT 02/18/2024 9:10 AM CDT [facility] CHEMISTRY Performing Organization Address [facility] [[email or web address]] Co de Phone Number [employer] [facility] [address] [place] [address], [facility] [address] [place] [address] * (ABNORMAL) COVID-19 MOLECULAR (01/15/2024 11:55 AM CDT) [facility] SARS COV 2 RNA DETECTED( A) NOT DETECTED [facility] Comment: A Detected result indicates that the patient's specimen was positive for SARS-CoV-2 RNA. ? Test Method: Nucleic Acid Amplification Test including reverse product mgr polymerase chain reaction (RT-PCR) and product mgr mediated amplification (TMA). The test method meets [...] providers and patients using the following websites: https://www.[employer]Think-Now/home/Covid-19/HCP/NAAT/fact-sheet2 https://www.[employer]com/home/Covid-19/Patients/NAAT/ fact-sheet2 ?? Additional information about COVID-19 can be found at the [employer] website: www.Instilling [employer].Think-Now/Covid19. For patients with a Detected or Inconclusive test result, please see CDC's COVID-19 Treatments and Medications page located at https://www.cdc.gov/coronavirus/2019-ncov/your-health/treatments-for- severe-illness.html for information on COVID-19 therapeutics. For patients with a Not Detected test result, please see CDC's Vaccines for COVID-19 page located at https://www.cdc.gov/coronavirus/2019-ncov/vaccines/index.html for information on COVID-19 vaccines. Other (Other) 01/15/2024 11: 55 AM CDT 01/15/2024 11:56 AM CDT Narrative [facility] - 01/17/2024 7:39 AM CDT MULTIPLE TESTING PRIORITIES; ROUTINE TESTING TO FOLLOW. Susu Linda DO MICROBIOLOGY [employer] [place] [address] [place] [address], [facility] [address] [place] [address] * MR KNEE LEFT WO (12/23/2023 11:29 [...] FS and T2 FS images. 1.5 Chanda OnThe[employer] Platformscanner. Knee coil. FINDINGS: OSSEOUS STRUCTURES: Fibrocystic focus [...] Retinaculum: Normal. Normal patellar alignment. Mild patella Reubens. Insall-Salvati ratio 1.32.Normal trochlear depth. Normal lateral [...] DENSITY 2 SITES AXIAL (05/22/2023 10:57 AM BODY TRIMMER UPHOLSTERER) Anatomical Region Laterality Modality Spine, HIPS, HIPL, HIPR Other Impressions 05/27/2023 2:35 PM BODY TRIMMER UPHOLSTERER Normal bone density. RECOMMENDATIONS: The National Osteoporosis [...] recommended in 3-5 years. Lisseth Richard PA-C [employer] [facility] 05/27/2023 ?? Narrative 05/27/2023 2:35 PM BODY TRIMMER UPHOLSTERER For Patients: Results are automatically released to your [employer] ([employer]) account once available, in compliance with federal regulations. This means that you may see your results before your provider has had a chance to review them. Please allow 2-3 business days for your provider to comment on the results. XR DXA Bone Mineral Density (BMD) EXAM LOCATION: [facility] [address] [facility] [address] PATIENT NAME: Hailey Diallo DATE OF : [...] two scanners are made by the same director of online education. PROCEDURE: Dual-energy x-ray absorptiometry performed with routine [...] DO DEXA * XR MAMMO BILAT SCREENING [[id number]] (05/16/2023 2:52 PM BODY TRIMMER UPHOLSTERER) Anatomical Region Laterality Modality BREASTS, Breast Left, Breast Right Bilateral Mammography Impressions 05/16/2023 4:33 PM BODY TRIMMER UPHOLSTERER ??There is no radiographic evidence for malignancy. ??Recommend annual mammograms. MAMMOGRAM ASSESSMENT: ??ACR 1 Negative PATIENTS: You will also receive a letter with your examination results in an easy to read format. ??If you have questions about your results, please contact your referring provider. Narrative 05/16/2023 4:33 PM BODY TRIMMER UPHOLSTERER For Patients: As a result of the Century Cures Act, medical imaging exams and procedure reports are released immediately into your electronic medical record. You may view this report before your referring provider. If you have questions, please contact your health care provider. XR MAMMO BILAT SCREENING [[id number]] CLINICAL HISTORY: ??This is an asymptomatic 72 y.o. patient. INDICATION FOR EXAM: Mammogram Screening. TECHNIQUE: CC & MLO views were obtained. ??This study was evaluated with the assistance of Computer-Aided Detection. COMPARISON FILM: Yes 05/15/22 [employer] 04/16/21 [employer] FINDINGS: ??The breasts have scattered areas of fibroglandular density. There are no dominant masses, suspicious micro calcifications or areas of architectural distortion. Margareti Inderjitqra DO MAMMO * ANTI HCV [[id number]] (03/23/2014 7:39 AM BODY TRIMMER UPHOLSTERER) HEPATITIS C ANTIBODY Non-Reacti ve Non-Reacti ve 03/23/2014 3:55 PM BODY TRIMMER UPHOLSTERER [facility] [place] [facility] Blood specimen (specimen) BLOOD SPECIMEN / Unknown Venipuncture / Unknown 03/23/2014 7:39 AM BODY TRIMMER UPHOLSTERER 03/23/2014 7:39 AM BODY TRIMMER UPHOLSTERER Narrative [facility] - 03/23/2014 3:55 PM BODY TRIMMER UPHOLSTERER Antibodies to HCV not detected; does not exclude the possibility of exposure to HCV. Melody Ricardo DO SEND OUTS [facility]-C[facility]AL LABORATORY 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
== END 2024-03-11 12:48 | disposition home or self-care (01) ==
LOC: AMB 03-13 21:00
PROVIDERS: PCP Student in an Organized Health Care Education/Training Program; Visit Provider Family Medicine
DX: I10 Essential (primary) hypertension (principal); R11.0 Nausea
CPT/HCPCS: A0425; A0429

== ENCOUNTER 2024-03-11 13:24 | Emergency (ER) | payer MEDICARE, BC, SELFPAY ==
[2024-03-11 13:34] VITALS: BP 163/78; PULSE 83; RESP 16; TEMP 37.1; O2SAT 97; BMI 40.8
--- NOTE | 2024-03-11 14:08 | ED.GENADULT ---
HPI - General Adult General Chief complaint: Hypertension Stated complaint: High BP Time Seen by Provider: 03/11/24 13:26 History of Present Illness HPI narrative: This 73-year-old female was in struck to to come in for evaluation. She had her knee replaced 3 days ago. She called in to her clinic stating that she would like some nausea medication. The clinic said that she would need to connect with orthopedic department. She called the Orthopedic Department and they said that this was something that could be handled by the clinic. She then called the nurse line and was instructed to come in here. She does report some nausea a symptoms and did measure her blood pressure at home which was elevated to around 190 and 200 for systolic value. She arrives here with a systolic blood pressure around 160. She does report some nausea symptoms and had similar symptoms when she had a shoulder surgery several years ago. She states that she feels like her vision is a little slow to respond when she gets nauseated but does not report any neurologic deficits. She does not have any shortness of breath or chest pain. She states that she is otherwise doing well. Related Data Home Medications ?Medication ?Instructions ?Recorded ?Confirmed hydrochlorothiazide 25 mg tablet 25 mg PO DAILY 11/28/21 03/11/24 losartan 100 mg tablet 100 mg PO DAILY 11/28/21 03/11/24 multivitamin 1 tab PO QAM 11/28/21 03/08/24 trazodone 50 mg tablet 50 mg PO HS 11/28/21 03/11/24 venlafaxine 75 mg capsule,extended 75 mg PO HS 11/28/21 03/11/24 release 24 hr calcium 600 mg (as carbonate)-vit 1 tab PO DAILY 12/26/21 03/08/24 D3 10 mcg (400 unit)-minerals tablet fluticasone propionate 50 1 spray intranasal DAILY PRN 12/26/21 03/08/24 mcg/actuation nasal spray,suspension (Allergy Relief (fluticasone)) celecoxib 200 mg capsule 200 mg PO Q12H 01/02/24 03/08/24 isosorbide mononitrate 30 mg 30 mg PO DAILY 01/02/24 03/08/24 tablet,extended release 24 hr rosuvastatin 40 mg tablet 40 mg PO HS 01/02/24 03/11/24 albuterol sulfate 90 mcg/actuation 1 - 2 inh inhalation Q4H PRN 03/08/24 03/11/24 aerosol inhaler aspirin 81 mg capsule 81 mg PO DAILY 03/08/24 03/11/24 fexofenadine 180 mg tablet 180 mg PO DAILY 03/08/24 03/11/24 (Allergy Relief (fexofenadine)) Previous Rx's ?Medication ?Instructions ?Recorded acetaminophen 500 mg capsule 500 - 1,000 mg (1 - 2 x 500 mg) PO 03/08/24 Q6H PRN #100 caps aspirin 81 mg tablet,delayed 81 mg PO BID #60 tabs 03/08/24 release oxycodone 5 mg tablet 2.5 - 5 mg (0.5 - 1 x 5 mg) PO 03/08/24 Q4-6H PRN pain #42 tabs sennosides 8.6 mg-docusate sodium 1 - 4 tab-cap (1 - 4 x 8.6-50 mg) 03/08/24 50 mg tablet (Senna-S) PO BID PRN constipation #60 tabs ondansetron 4 mg disintegrating 4 mg PO Q6H #20 tabs 03/11/24 tablet ondansetron HCl 4 mg tablet 4 mg PO Q6H #20 tabs 03/11/24 Allergies Allergy/AdvReac Type Severity Reaction Status Date / Time amlodipine Allergy Edema Verified 03/11/24 13:33 lisinopril Allergy Rash Verified 03/11/24 13:33 sulfamethoxazole (From Allergy Itching Verified 03/11/24 13:33 Bactrim) terbinafine Allergy Rash Verified 03/11/24 13:33 trimethoprim (From Bactrim) Allergy Itching Verified 03/11/24 13:33 Review of Systems Status of ROS: Reports: 10 or more systems reviewed and unremarkable except as noted in History and below Narrative: Constitutional: No fevers, no weight gain or loss. Eyes: No discharge. No vision changes. HENT: No congestion, no sore throat, no ear pain. Cardiovascular: No chest pain, no palpitations. Respiratory: No shortness of breath, no wheezes, no cough. Gastrointestinal: No abdominal pain, no vomiting, no diarrhea. She reports nausea symptoms. Genitourinary: No dysuria, no hematuria. Musculoskeletal: Recent total knee replacement. Skin: No rashes, no pruritis. Neurological: No dizziness, weakness, sensory change, speech change. Endo/Heme/Allergies: No bruising or bleeding. No polydipsia. Pysch: no suicidality, no anxiety, no insomnia. All other systems reviewed and are negative. [facility] Medical History (Updated 03/11/24 @ 14:13 by Papi Mercado MD) Atherosclerotic coronary vascular disease ?I25.10 - Atherosclerotic heart disease of [place] coronary artery without angina pectoris (ICD-10) Abnormal echocardiogram ?R93.1 - Abnormal findings on diagnostic imaging of heart and coronary circulation (ICD-10) Ascending aorta dilatation ?I77.810 - Thoracic aortic ectasia (ICD-10) Abnormal stress test ?R94.39 - Abnormal result of other cardiovascular function study (ICD-10) Elevated coronary artery calcium score ?R93.1 - Abnormal findings on diagnostic imaging of heart and coronary circulation (ICD-10) Seasonal allergies (09/20/09) ?J30.2 - Other seasonal allergic rhinitis (ICD-10) Postmenopausal state (11/11/06) ?Z78.0 - Asymptomatic menopausal state (ICD-10) Obesity (11/11/06) ?E66.9 - Obesity, unspecified (ICD-10) Chronic sinusitis ?J32.9 - Chronic sinusitis, unspecified (ICD-10) Closed head injury ?S09.90XA - Unspecified injury of head, initial encounter (ICD-10) Hypertension (11/11/06) ?I10 - Essential (primary) hypertension (ICD-10) Exercise-induced asthma (09/20/09) ?J45.990 - Exercise induced bronchospasm (ICD-10) H/O tinnitus (11/11/06) ?Z86.69 - Personal history of other diseases of the nervous system and sense organs (ICD-10) Colonoscopy planned ACP (advance care planning) ?Z71.89 - Other specified counseling (ICD-10) Adenomatous colon polyp ?D12.6 - Benign neoplasm of colon, unspecified (ICD-10) Depression with anxiety ?F41.8 - Other specified anxiety disorders (ICD-10) Ankle enthesopathy ?M77.50 - Other enthesopathy of unspecified foot and ankle (ICD-10) Surgical History (Updated 03/09/24 @ 13:06 by Xiao Bonilla MD) Status post total left knee replacement ?Z96.652 - Presence of left artificial knee joint (ICD-10) History of phacoemulsification of cataract of both eyes with intraocular lens implantation ?Z98.41 - Cataract extraction status, right eye (ICD-10) ?Z98.42 - Cataract extraction status, left eye (ICD-10) ?Z96.1 - Presence of intraocular lens (ICD-10) History of repair of right rotator cuff (~03/2012) ?Z98.890 - Other specified postprocedural states (ICD-10) History of arthroplasty of finger of right hand (12/27/21) ?Z96.691 - Finger-joint replacement of right hand (ICD-10) History of bladder suspension procedure ?Z98.890 - Other specified postprocedural states (ICD-10) ?Z87.448 - Personal history of other diseases of urinary system (ICD-10) H/O: hysterectomy ?Z90.710 - Acquired absence of both cervix and uterus (ICD-10) Family History (Updated 03/08/24 @ 13:17 by Xiao Bonilla MD) Aunt Ovarian cancer Mother Colorectal cancer, Onset Age: 68 Schizophrenia Father Heart disease High blood pressure Social History (Updated 03/08/24 @ 13:18 by Xiao Bonilla MD) Narrative: Never smoker, has not had alcohol since college, denies recreational drugs. Smoking Status: Never smoker How often do you have a drink containing alcohol: never How often do you have six or more drinks on one occasion: Never AUDIT-C Alcohol total score: 0 Non-prescribed substance use: denies use Caffeine: Yes (coffee) Are you using contraception or practicing any form of control: No Exam Narrative: Exam Narrative: Constitutional: Well-developed, well-nourished, no acute distress. HEENT: Normocephalic, atraumatic. Neck: Normal range of motion. Nontender. Supple. Heart: Intact distal pulses. Lungs: No chest discomfort. No wheezes, rhonchi, or rales. Abdomen: Nontender. Back: Normal range of motion. Skin: Intact. No rash. Warm. No erythema or pallor. Neurologic: No altered sensation. No weakness. Alert and oriented. Psychiatric: No suicidality. No anxiety or depression. No insomnia. Nursing notes and vitals signs are reviewed. Const: Vital Signs, click to edit/add: Vital Signs - 24 hr 03/11/24 13:34 Temperature 98.8 F Pulse Rate [Pulse Oximeter] 83 Respiratory Rate 16 Blood Pressure [Ri ght Upper Arm] 163/78 H Pulse Oximetry 97 Oxygen Delivery Me thod Room Air Course Vital Signs Vital signs: Initial Vital Signs Temperature 98.8 F 03/11/24 13:34 Temperature Source Temporal Artery Scan 03/11/24 13:34 Pulse Rate 83 03/11/24 13:34 Respiratory Rate 16 03/11/24 13:34 Blood Pressure 163/78 H 03/11/24 13:34 Blood Pressure Mean 106 H 03/11/24 13:34 Blood Pressure Position High-Fowlers 03/11/24 13:34 Pulse Oximetry 97 03/11/24 13:34 Oxygen Delivery Method Room Air 03/11/24 13:34 Vital Signs Temperature 98.8 F 03/11/24 13:34 Pulse Rate 83 03/11/24 13:34 Respiratory Rate 16 03/11/24 13:34 Blood Pressure 163/78 H 03/11/24 13:34 Pulse Oximetry 97 03/11/24 13:34 Oxygen Delivery Method Room Air 03/11/24 13:34 Temperature 98.8 F 03/11/24 13:34 Pulse Rate 83 03/11/24 13:34 Respiratory Rate 16 03/11/24 13:34 Blood Pressure 163/78 H 03/11/24 13:34 Pulse Oximetry 97 03/11/24 13:34 Oxygen Delivery Method Room Air 03/11/24 13:34 Medications Administered Medications: Discontinued Medications Generic Name Dose Route Start Last Admin Trade Name Luc PRN Reason Stop Dose Admin Ondansetron HCl 4 mg 03/11/24 14:07 03/11/24 14:18 Ondansetron Odt 4 Mg Tab PO 03/11/24 14:08 4 mg ONCE ONE Administration Medical Decision Making MDM Narrative Medical decision making narrative: This patient is generally seeking a prescription for a nausea medicine as she is taking pain meds after having a total knee replacement. She does report elevated blood pressure. This came down compared to what she measured at home. I did describe criteria involved in determining whether to start a antihypertensive medication. She can recheck her blood pressure and follow-up with her primary physician in this regard. The patient did receive an oral dose of Zofran 4 mg and a prescription for the same. She is okay to be discharged home. Discharge Plan Discharge Clinical Impression: Nausea Patient Disposition: Home, Self-Care Condition: Stable Additional Instructions: Take medication as needed and indicated. Continue current plans otherwise. Follow up with MD return if worsening. Prescriptions: New ondansetron HCl 4 mg tablet 4 mg PO Q6H Qty: 20 2RF No Action losartan 100 mg tablet 100 mg PO DAILY hydrochlorothiazide 25 mg tablet 25 mg PO DAILY trazodone 50 mg tablet 50 mg PO HS venlafaxine 75 mg capsule,extended release 24hr 75 mg PO HS multivitamin Tablet 1 tab PO QAM isosorbide mononitrate 30 mg tablet extended release 24 hr 30 mg PO DAILY celecoxib 200 mg capsule 200 mg PO Q12H rosuvastatin 40 mg tablet 40 mg PO HS calcium carbonate-vit D3-min 600 mg calcium- 400 unit tablet 1 tab PO DAILY fluticasone propionate [Allergy Relief (fluticasone)] 50 mcg/actuation spray,suspension 1 spray intranasal DAILY PRN Rx Instructions: administer into each nostril albuterol sulfate 90 mcg/actuation HFA aerosol inhaler 1 - 2 inh inhalation Q4H PRN aspirin 81 mg capsule 81 mg PO DAILY fexofenadine [Allergy Relief (fexofenadine)] 180 mg tablet 180 mg PO DAILY sennosides-docusate sodium [Senna-S] 8.6-50 mg tablet 1 - 4 tab-cap PO BID PRN (Reason: constipation) Qty: 60 0RF Rx Instructions: Hold medication if experiencing loose stools. aspirin 81 mg tablet,delayed release (DR/EC) 81 mg PO BID Qty: 60 0RF Rx Instructions: Medication to help prevent blood clots postoperatively; take TWICE daily. acetaminophen 500 mg capsule 500 - 1,000 mg PO Q6H MDD 4000mg PRNQty: 100 0RF oxycodone 5 mg tablet 2.5 - 5 mg PO Q4-6H MDD 6 PRN (Reason: pain) Qty: 42 0RF Rx Instructions: Take as needed for postop pain: 2.5mg mild pain, 5mg moderate-severe pain; wean as tolerated. ondansetron 4 mg tablet,disintegrating 4 mg PO Q6H Qty: 20 0RF Follow Up/Referrals: SHAWN MAIN DO [Primary Care Provider] - Stand Alone Forms: MyHealth Info Instructions
[2024-03-11] MEDS: ONDANSETRON ODT 4 MG TAB PO (14:18)
--- OUTSIDE RECORDS SUMMARY | 2024-03-11 14:39 | XMS_ITS | Clinical Summary ---
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 0 10/05/2012 Active fexofenadine (DIANA) 180 mg tablet Take 1 tablet by mouth once daily if needed for Allergy Symptoms. 0 10/05/2012 Active Blood Pressure MonitorIndications:HTN (hypertension) test 1-2 times monthly. 1 Device 0 05/10/2015 Active calcium carbonate-vitamin D3, 600 mg-400 unit, 600 mg(1,500mg) -400 unit tabletIndications:Carina min D deficiency Take 1 Tablet by mouth 2 times daily with meals. 200 Tablet 4 04/03/2021 Active fluticasone (50 mcg per actuation) nasal solution (FLONASE)Indications:C hronic maxillary sinusitis Inhale 2 Sprays to both nostrils once daily. 16 g 07/05/2021 Active albuterol HFA (PRO-AIR; VENTOLIN; PROVENTIL) 90 mcg/actuation inhalerIndications:SOB (shortness of breath) Inhale 1-2 Puffs by mouth every 4 hours if needed for Shortness Of Breath. 1 Each 11/19/2022 Active hydroCHLOROthiazide (HCTZ) 25 mg tabletIndications:Hype rtension, unspecified type Take 1 Tablet (25 mg) by mouth once daily. 90 Tablet 3 05/15/2023 Active losartan (COZAAR) 100 mg tabletIndications:Hype rtension, unspecified type Take 1 Tablet (100 mg) by mouth once daily. 90 Tablet 3 05/15/2023 Active traZODone (DESYREL) 50 mg tabletIndications:Depr ession with anxiety Take 1 Tablet (50 mg) by mouth at bedtime. 90 Tablet 3 05/15/2023 Active venlafaxine (EFFEXOR) 75 mg tabletIndications:Depr ession with anxiety Take 1 Tablet (75 mg) by mouth every morning. 90 Tablet 3 05/15/2023 Active rosuvastatin (CRESTOR) 40 mg tabletIndications:Elev ated coronary artery calcium score Take 1 Tablet (40 mg) by mouth at bedtime. 90 Tablet 3 06/16/2023 Active LORazepam (ATIVAN) 1 mg tabletIndications:Anxi ety due to invasive procedure Take 1 Tablet (1 mg) by mouth one time for 1 dose. 1 Tablet 12/17/2023 Active celecoxib (CELEBREX) 200 mg capsuleIndications:Art hritis of left knee Take 1 Capsule (200 mg) by mouth two times daily with meals. 60 Capsule 2 12/17/2023 Active aspirin chewable 81 mg chewable tablet Chew 1 Tablet (81 mg) by mouth once daily with a meal. 01/15/2024 Active isosorbide mononitrate (IMDUR) 30 mg extended release tablet 24 HourIndications:Alves ry atherosclerosis due to calcified coronary lesion (CODE),WHITMORE (dyspnea on exertion) Take 1 Tablet (30 mg) by mouth once daily. 90 Tablet 3 01/23/2024 Active Active Problems Problem Noted Date Diagnosed Date ACP (advance care planning) 05/03/2021 Overview (05/16/2021): Patient has registered for the May.16 virtual ACP class. Did not attended KATTY [facility] Advance Care Planning Educator HTN (hypertension) 04/17/2016 Adenomatous colon polyp 12/15/2013 Overview (12/15/2013): Colonoscopy 11/2013 polyp repeat in 5 years Depression with anxiety 10/05/2012 Enthesopathy of ankle and tarsus, unspecified Encounters Date Type Department Care Team Description 03/11/2024 Nurse Triage [facility] [address] [place] [address] Susu Linda DO High Blood Pressure 03/11/2024 Telephone [facility] [address] [place] [address] Susu Linda DO Medication Management (Nauseous) 03/08/2024 Orders Only [facility] Scanner 1 scan: (1-Ord) [facility], KNEE LT 2V, 03/08/2024 02/23/2024 11:00 AM CDT Preop Visit [facility] [address] [facility] [place] [address] Susu Linda DO Preoperative Exam ([facility] - 03/08/2024 - LEFT total knee ) 02/23/2024 Travel 02/19/[address] [place] [address] Moustapha Kinsey MD Results (lab) 02/18/2024 9:15 AM CDT Orders Only [facility] [address] [place] [address] Lab, [place] Lab 02/18/2024 Travel 02/13/2024 Travel 02/10/2024 Orders Only [address] [place] [address] Moustapha Kinsey MD Lab 01/23/2024 10:00 AM CDT Office Visit [facility] [address] [facility] [address] [place] [address] Moustapha Kinsey MD Teleheart, Nam Follow Up (Coronary atherosclerosis/Echo 11/24/23 ) 01/23/2024 Telephone [facility] [address] [facility] [place] [address] Susu Linda DO Lab (Possible orders needed) 01/23/2024 Travel 01/21/2024 Telephone [facility] [address] [facility] [place] [address] Susu Linda DO Covid-19 Positive Result 01/15/2024 11:25 AM CDT Preop Visit [facility] [address] [place] [address] Susu Linda DO Preoperative Exam (Dr. Fontaine - LEFT total knee - 01/28/2024 - [facility] ) 01/15/2024 Travel 01/12/2024 Travel 12/25/2023 Telephone [facility] [address] [place] [address] Kings Loaiza MD Results 12/23/2023 11:15 AM CDT Ancillary Procedure [facility] [address] [facility] [address] [place] [address] 12/23/2023 Travel from Last 3 Months Immunizations Name Administration Dates Next Due Amb Influenza, Inactivated A IIV4 (Age 65+ Years) Preserv Free 01/27/2020 COVID-19 VACCINE SPIKEVAX (M ODERNA 50MCG/0.5ML) 12YO+ PFS 01/17/2023 COVID-19 vaccine (Pfizer-Bio NTech 30mcg/0.3mL) PF, MDV 06/06/2020,05/16/2020 Influenza Virus, Unspecified 02/11/2016 Influenza, High-dose Inactivated 01/27/2024,01/26,04/01/2015 Influenza, High-dose Quadriv alent Inactivated 02/26/2023,02/25/2022,02/15/2021 Influenza, IIV3 (Age 6-35 mos) 04/01/2015,2009,01/25/2009 Influenza, IIV3 (Age >=3 years) 02/13/20 14,02/09/2013,01/18/2013,2007 Influenza, IIV4 02/09/2019, 7,02/10/2016,2013 Pneumococcal Conj 20-valent (Prevnar 20) 05/15/2023 Pneumococcal Poly,23-Valent (Pneumovax) 08/07/2018 Tdap 10/05/2012 Zoster (Shingrix-RZV, recombinant) 12/19/2022, Family History Medical History Relation Name Comments Heart Disease Father Hypertension Father Cancer-colon Mother 68 from [place] cancer Psychiatric illness Mother schizoph jc Cancer Paternal Aunt ovarian Cancer-breast No Family History Cancer-ovarian No Family History Relation Name Status Comments Father Mother Paternal Aunt Social History Tobacco Use Types Packs/Day Years Used Date Smoking Tobacco: Never Smokeless Tobacco: Never Tobacco Cessation:Counseling Given: Yes Alcohol Use Standard Drinks/Week Comments Not Currently 0 (1 standard drink = 0.6 oz pur e alcohol) rare PHQ-2 Answer Date Recorded PHQ-2 TOTAL SCORE 0 05/15/2023 Social Connections Answer Date Recorded Do you often feel lonely or isolated from those around you? 0 05/15/2023 Financial Resource Strain Answer Date R ecorded Difficulty of Paying Living Expenses 3 05/15/2023 Difficulty of Paying Living Expenses Not on file 05/15/2023 Food Insecurity Answer Date Recorded Do you worry your food will run out before you are able to buy more? 1 05/15/2023 Transportation Needs Answer Date Record ed Does lack of transportation keep you from medica l appointments? 1 05/15/2023 Does lack of transportation keep you from work, meetings or getting things that you need? 1 05/15/2023 Housing Stability Answer Date Recorded What is your housing situation today? 1 05/15/2023 Sex and Gender Information Value Date Recorded Sex Assigned at Not on file Gender Identity Not on file Sexual Orientation Not on file Obstetrics History Para Term AB IAB SAB Ectopic Multiple Livin g Live Births 2 2 Date Outcome GA Total Labor Labor/2nd/3rd Weight Sex Type Anes PTL Eve A1 A5 Name Clin Last Filed Vital Signs Vital Sign Reading Time Taken Comments Blood Pressure 130/80 02/23/2024 11:07 AM CDT recheck Pulse 80 02/23/2024 11:05 AM CDT Temperature 36.6 ??C (97.8 ??F) 12/04/2023 1 0:46 AM CDT Respiratory Rate 16 05/13/2017 8:44 AM FOURDRINIER MACHINE OPERATOR Oxygen Saturation 98% 02/23/2024 11: 05 AM CDT Inhaled Oxygen Concentration - - Weight 112.4 kg (247 lb 11.2 oz) 2023 11:05 AM CDT Height 166.4 cm (5' 5.5) 10/22/2023 11 :00 AM CDT Body Mass Index 40.59 10/22/2023 11:00 AM CDT Plan of Treatment Health Maintenance Due Date Last Done Comments Colonoscopy through age 75 12/14/2018 12/14/2013, Tetanus booster 10/05/2022 10/05/2012 COVID-19 vaccine series ( season) 2023 01/17/2023, 01/28/2022, 09/13/2021, Additional history exists Depression screening for age 12+ 05/15/2024 05/15/2023, 05/15/2023, 05/13/2022, Additional history exists Medicare Wellness for age 65+ 05/15/2024, 05/13/2022, 04/03/2021, Additional history exists Mammogram for age 45-75 05/16/2024 05/16/19 24, 05/15/2022, 04/16/2021, Additional history exists BMI (ht and wt on same day) for age 18+ 10/07/2024 10/08/2023, 05/30/2023, 05/15/2023, Additional history exists Lipids for age 45-75 02/17/2029 02/18/2024, 05/15/2023, 05/13/2022, Additional history exists Tdap Completed 10/05/2012 Hepatitis C screening for ag e 18-79 Completed 03/23/2014 Zoster (shingles) series for age 50+ Completed 12/19/2022, 09/13/2022 Pneumococcal series for age 65+ Completed , 08/07/2018 DEXA/DXA scan for age 65+ Completed 05/22/2023, Influenza for age 65+ Completed 01/27/2024 , 02/26/2023, 02/25/2022, Additional history exists Goals Goal Patient Goal Type Associated Problems Recent Progress Patient-Stated? Author BLOOD PRESSURE - MAINTAINS BP less than 140/90 Blood Pressure Melody Wetzel, Procedures Procedure Name Priority Date/Time Associated Diagnosis Comments SCAN-RADIOLOGY REPORT 03/08/2024 12:00 AM FOURDRINIER MACHINE OPERATOR HEMOGLOBIN Routine 02/18/2024 9:10 AM CDT Pre-op evaluation POTASSIUM Routine 02/18/2024 9:10 AM CDT Pre-op evaluation LIPID PANEL W REFLEX MEASURED LDL Routine 02/18/2024 9:10 AM CDT Coronary atherosclerosis due to calcified coronary lesion (CODE) POTASSIUM Routine 01/15/2024 12:06 PM CDT Pre-op evaluation HEMOGLOBIN Routine 01/15/2024 12:06 PM CDT Pre-op evaluation COVID-19 MOLECULAR Routine 01/15/2024 11 :55 AM CDT Acute cough MR KNEE LEFT WO Routine 12/23/2023 11:29 AM CDT Arthritis of left knee Chronic pain of left knee Pain of meniscus of left knee XR DXA BONE DENSITY 2 SITES AXIAL Routine 05/22/2023 10:57 AM FOURDRINIER MACHINE OPERATOR Osteoporosis screening Asymptomatic menopausal state XR MAMMO BILAT SCREENING Routine 05/16/2023 2:52 PM FOURDRINIER MACHINE OPERATOR Visit for screening mammogram ANTI HCV Routine 03/23/2014 7:39 AM FOURDRINIER MACHINE OPERATOR Need for hepatitis C screening test from Last 3 Months or Most Recently Relevant to Health Maintenance Results * SCAN-RADIOLOGY REPORT (03/08/2024 12:00 AM FOURDRINIER MACHINE OPERATOR) Anatomical Region Laterality Modality Other Scanner OTHER * LIPID PANEL W REFLEX MEASURED LDL (02/18/2024 9:10 AM CDT) CHOLESTEROL, TOTAL 135 <200 mg/dL [facility] HDL CHOLESTEROL 63 > OR = 50 mg/dL [facility] TRIGLYCERIDES 84 <150 mg/dL [facility] LDL-CHOLESTEROL 56 mg/dL (calc) [facility] Comment: Reference range: <100 Desirable range <100 mg/dL for primary prevention; ?? <70 mg/dL for patients with CHD or diabetic patients with > or = 2 CHD risk factors. LDL-C is now calculated using the Arsen calculation, which is a validated novel method providing better accuracy than the Friedewald equation in the estimation of LDL-C. Dannie MASTERS et al. EDNA. 2013;310(19): 7232-8075 (http://education.ClassifEye/faq/GOQ123) CHOL/HDLC RATIO 2.1 <5.0 (calc) [facility] NON HDL CHOLESTEROL 72 <130 mg/dL (calc) [facility] Comment: For patients with diabetes plus 1 major ASCVD risk factor, treating to a non-HDL-C goal of <100 mg/dL (LDL-C of <70 mg/dL) is considered a therapeutic option. Blood BLOOD SPECIMEN / Unknown 02/18/2024 9:10 AM CDT 02/18/2024 9:10 AM CDT Moustapha Kinsey MD CHEMISTRY [facility] [address] [place] [address], [facility] [address] [place] [address] * HEMOGLOBIN (02/18/2024 9:10 AM CDT) Only the most recent of2 resultswithin the time period is included. HEMOGLOBIN 14.3 11.7 - 15.5 g/dL [facility] Blood BLOOD SPECIMEN / Unknown 02/18/2024 9:10 AM CDT 02/18/2024 9:10 AM CDT Susu Linda DO HEMATOLOGY Performing Organization Address City[facility]/ZIP Co de Phone Number [facility] [address] [place] [address], [facility] [address] [place] [address] * POTASSIUM (02/18/2024 9:10 AM CDT) Only the most recent of2 resultswithin the time period is included. [facility] POTASSIUM 4.2 3.5 - 5.3 mmol/L [facility] Blood BLOOD SPECIMEN / Unknown 02/18/2024 9:10 AM CDT 02/18/2024 9:10 AM CDT [facility] Performing Organization Address [facility] Co de Phone Number [facility] [address] [place] [address], [facility] [address] [place] [address] * (ABNORMAL) COVID-19 MOLECULAR (01/15/2024 11:55 AM CDT) [facility] SARS COV 2 RNA DETECTED( A) NOT DETECTED [facility] Comment: A Detected result indicates that the patient's specimen was positive for SARS-CoV-2 RNA. ? Test Method: Nucleic Acid Amplification Test including reverse admitting supervisor polymerase chain reaction (RT-PCR) and admitting supervisor mediated amplification (TMA). The test method meets the [place] Centers for Disease Control and prevention (CDC) pre departure and arrival requirement for viral test for COVID-19 dated May 25, 2020. Testing requirements for traveling may change with time. The patient is responsible for determining the test requirements for each nation while they are traveling. This test has been authorized by the FDA under an Emergency Use Authorization (EUA) for use by authorized laboratories. ?? Please review the Fact Sheets and FDA authorized labeling available for health care providers and patients using the following websites: https://www.GigaBryte.Adrenaline Mobility/home/Covid-19/HCP/NAAT/fact-sheet2 https://www.GigaBryte.com/home/Covid-19/Patients/NAAT/ fact-sheet2 ?? Additional information about COVID-19 can be found at the [facility] website: www.[employer].Adrenaline Mobility/Covid19. For patients with a Detected or Inconclusive test result, please see CDC's COVID-19 Treatments and Medications page located at https://www.cdc.gov/coronavirus/2019-ncov/your-health/treatments-for- severe-illness.html for information on COVID-19 therapeutics. For patients with a Not Detected test result, please see CDC's Vaccines for COVID-19 page located at https://www.cdc.gov/coronavirus/2019-ncov/vaccines/index.html for information on COVID-19 vaccines. Other (Other) 01/15/2024 11: 55 AM CDT 01/15/2024 11:56 AM CDT Narrative [facility] - 01/17/2024 7:39 AM CDT MULTIPLE TESTING PRIORITIES; ROUTINE TESTING TO FOLLOW. Susu Linda DO MICROBIOLOGY [facility] [address] [place] [address], [facility] [address] [place] [address] * MR KNEE LEFT WO (12/23/2023 11:29 AM CDT) Anatomical Region Laterality Modality KNEE L Magnetic Resonan ce 12/23/2023 2:35 PM CDT Impressions 12/23/2023 2:35 PM CDT 1. Severe osteoarthritis patellofemoral compartment. Mild osteoarthritis medial compartment. 2. Degenerative tearing medial meniscus. 3. MCL bursitis and mild semimembranosus bursitis. Dictated by Kings Jimenez MD @ 12/23/2023 2:35:28 PM (Electronically Signed) Narrative 12/23/2023 2:35 PM CDT For Patients: ??As a result of the 21st Century Cures Act, medical imaging exams and procedure reports are released immediately into your electronic medical record. ??You may view this report before your referring provider. ??If you have questions, please contact your health care provider. EXAM: MRI OF THE LEFT KNEE, WITHOUT CONTRAST CLINICAL INDICATION: Knee pain. PRIOR SURGERY: Chronic pain. COMPARISON PLAIN FILMS: 30 May 2023 COMPARISON CROSS-SECTIONAL IMAGING STUDIES: None available at time of interpretation. TECHNICAL: Axial, sagittal and coronal T1, PD, PD FS and T2 FS images. ??1.5 Chanda MR scanner. ??Knee coil. FINDINGS: OSSEOUS STRUCTURES: Fibrocystic focus in the posterior plateau under the inserting medial meniscal root. No significant bone lesion. JOINT SPACE AND CAPSULE: Effusion: No significant joint effusion or synovitis. Joint Bodies: None seen. CRUCIATE LIGAMENTS: Anterior Cruciate Ligament: Normal. Posterior Cruciate Ligament: Normal. EXTENSOR MECHANISM: Distal Quadriceps Tendon: Normal. Patellar Tendon: Normal. Medial Patellar Retinaculum and Medial Patellofemoral Ligament: Normal. Lateral Patellar Retinaculum: Normal. Normal patellar alignment. ??Mild patella Cherri. Insall-Salvati ratio 1.32. Normal trochlear depth. ??Normal lateral trochlear inclination. MEDIAL COLLATERAL LIGAMENT AND POSTEROMEDIAL CORNER COMPLEX: Medial Collateral Ligament: Intact. Loculated fluid along the superficial margin. Thickened edematous capsule underneath. Medial Head of the Gastrocnemius and Semimembranosus Tendons: Normal. LATERAL COLLATERAL LIGAMENT COMPLEX AND POSTEROLATERAL CORNER COMPLEX: Fibular Collateral Ligament: Normal. Distal Biceps Femoris Tendon Complex: Normal. Iliotibial Band: Normal. Popliteus Tendon: Normal. Posterolateral Corner Capsule: Normal. MEDIAL COMPARTMENT: Medial Meniscus: Prominent degenerative tearing with volume loss extrusion through the body. Prominent tearing and mucoid change in the junction with the anterior horn. Shallow fraying of the free margin of the posterior horn with intact root. Articular Cartilage: Heterogeneous T2 signal and irregular grade 2 thinning and grade 2 to grade 3 fissuring. Subchondral edema in the tibial plateau. Patchy subchondral edema and cysts posterior condyle. Small marginal osteophytes. LATERAL COMPARTMENT: Lateral Meniscus: Normal size and morphology without tear. Articular Cartilage: Articular surfaces appear smooth without focal articular cartilage defect or subchondral marrow changes. PATELLOFEMORAL COMPARTMENT: Articular Cartilage: Chronic appearing full-thickness grade 4 cartilage loss lateral facet and lateral trochlea with prominent cysts, sclerosis and edema and marginal osteophytes. PERIARTICULAR SOFT TISSUES: Popliteal Cyst: No significant popliteal cyst. Periarticular Cysts or Ganglia: None. Bursae: MCL bursitis as above. Small amount in the semimembranosus bursa as well. Musculature: No muscle atrophy or muscle edema. Subcutaneous and Soft Tissues: No subcutaneous or soft tissue mass, edema or fluid collection. Neurovascular Structures: Normal. Procedure Note Kings Jimenez MD - 12/23/2023 For Patients: As a result of the Cures Act, medical imagingexams and procedure reports are released immediately into your electronicmedical record. You may view this report before your referring provider.If you have questions, please contact your health care provider. EXAM: MRI OF THE LEFT KNEE, WITHOUT CONTRAST CLINICAL INDICATION: Knee pain. PRIOR SURGERY: Chronic pain. COMPARISON PLAIN FILMS: 30 May 2023 COMPARISON CROSS-SECTIONAL IMAGING STUDIES: None available at time of interpretation. TECHNICAL: Axial, sagittal and coronal T1, PD, PD FS and T2 FS images. 1.5 Chanda Dealstreetcanner. Knee coil. FINDINGS: OSSEOUS STRUCTURES: Fibrocystic focus in the posterior plateau under the inserting medialmeniscal root. No significant bone lesion. JOINT SPACE AND CAPSULE: Effusion: No significant joint effusion or synovitis. Joint Bodies: None seen. CRUCIATE LIGAMENTS: Anterior Cruciate Ligament: Normal. Posterior Cruciate Ligament: Normal. EXTENSOR MECHANISM: Distal Quadriceps Tendon: Normal. Patellar Tendon: Normal. Medial Patellar Retinaculum and Medial Patellofemoral Ligament: Normal. Lateral Patellar Retinaculum: Normal. Normal patellar alignment. Mild patella Walls. Insall-Salvati ratio 1.32.Normal trochlear depth. Normal lateral trochlear inclination. MEDIAL COLLATERAL LIGAMENT AND POSTEROMEDIAL CORNER COMPLEX: Medial Collateral Ligament: Intact. Loculated fluid along the superficialmargin. Thickened edematous capsule underneath. Medial Head of the Gastrocnemius and Semimembranosus Tendons: Normal. LATERAL COLLATERAL LIGAMENT COMPLEX AND POSTEROLATERAL CORNER COMPLEX: Fibular Collateral Ligament: Normal. Distal Biceps Femoris Tendon Complex: Normal. Iliotibial Band: Normal. Popliteus Tendon: Normal. Posterolateral Corner Capsule: Normal. MEDIAL COMPARTMENT: Medial Meniscus: Prominent degenerative tearing with volume loss extrusionthrough the body. Prominent tearing and mucoid change in the junction withthe anterior horn. Shallow fraying of the free margin of the posteriorhorn with intact root. Articular Cartilage: Heterogeneous T2 signal and irregular grade 2thinning and grade 2 to grade 3 fissuring. Subchondral edema in the tibialplateau. Patchy subchondral edema and cysts posterior condyle. Smallmarginal osteophytes. LATERAL COMPARTMENT: Lateral Meniscus: Normal size and morphology without tear. Articular Cartilage: Articular surfaces appear smooth without focalarticular cartilage defect or subchondral marrow changes. PATELLOFEMORAL COMPARTMENT: Articular Cartilage: Chronic appearing full-thickness grade 4 cartilageloss lateral facet and lateral trochlea with prominent cysts, sclerosisand edema and marginal osteophytes. PERIARTICULAR SOFT TISSUES: Popliteal Cyst: No significant popliteal cyst. Periarticular Cysts or Ganglia: None. Bursae: MCL bursitis as above. Small amount in the semimembranosus bursaas well. Musculature: No muscle atrophy or muscle edema. Subcutaneous and Soft Tissues: No subcutaneous or soft tissue mass, edemaor fluid collection. Neurovascular Structures: Normal. IMPRESSION: 1. Severe osteoarthritis patellofemoral compartment. Mild osteoarthritismedial compartment. 2. Degenerative tearing medial meniscus. 3. MCL bursitis and mild semimembranosus bursitis. Dictated by Kings Jimenez MD @ 12/23/2023 2:35:28 PM (Electronically Signed) Kings Loaiza MD MR * XR DXA BONE DENSITY 2 SITES AXIAL (05/22/2023 10:57 AM FOURDRINIER MACHINE OPERATOR) Anatomical Region Laterality Modality Spine, HIPS, HIPL, HIPR Other Impressions 05/27/2023 2:35 PM FOURDRINIER MACHINE OPERATOR Normal bone density. RECOMMENDATIONS: The National Osteoporosis Foundation recommends pharmacologic treatment for patients with T-scores of -2.5 or less, patients with prior history of fragility fractures, or patients with 10-year probability of greater than 3% at hips or greater than 20% of suffering major osteoporotic fractures. Recommend continued optimization of calcium and vitamin D intake through dietary means and/or supplementation and regular exercise. Repeat scan recommended in 3-5 years. Lisseth Richard PA-C [facility] 05/27/2023 ?? Narrative 05/27/2023 2:35 PM FOURDRINIER MACHINE OPERATOR For Patients: Results are automatically released to your [employer] ([employer]) account once available, in compliance with federal regulations. This means that you may see your results before your provider has had a chance to review them. Please allow 2-3 business days for your provider to comment on the results. XR DXA Bone Mineral Density (BMD) EXAM LOCATION: [facility] [address] [facility] [id number] PATIENT NAME: Hailey Diallo DATE OF : 1950 EXAM DATE: 05/22/2023 REQUESTING PROVIDER: Susu Linda DO GENDER AT : female HEIGHT: 5' 5.55 (05/15/2023) WEIGHT: ??242 lb 4.8 oz (05/15/2023) MENOPAUSAL STATUS: Postmenopausal RACE/ETHNICITY: White RISK FACTORS: White Race CURRENT MEDICATION FOR BONE LOSS: NONE INDICATION: Post-Menopause and Follow-up of normal DXA COMPARISON DATE(S): 2018 DXA scans are compared to prior studies for a patient only when the two (or more) studies were performed on the same scanner. It is not possible to compare data generated on one scanner to data from another because there are not standards in DXA equipment. This applies even if the two scanners are made by the same sprinkler fitter apprentice. PROCEDURE: Dual-energy x-ray absorptiometry performed with routine technique. Reporting is completed in the form of a T-score. The T-score represents the standard deviation from peak bone mass based on young healthy adult. A Z-score is used for diagnosis in premenopausal women, and for men under the age of 50. FINDINGS: RESULT LUMBAR SPINE L1 - L3 ??BMD: 1.187 g/cm2 T-Score: + 0.0 Z-Score: + 0.6 Change from prior in 2018: ??Decrease 0.3%. RESULTS FEMUR Left femoral neck BMD: 0.929 g/cm2 T-Score: - 0.8 Z-Score: + 0.2 Change from prior in 2018: ??Decrease 9.5%. Right femoral neck BMD: 0.963 g/cm2 T-Score: - 0.5 Z-Score: + 0.4 Change from prior in 2018: ??Decrease 2.0%. Left hip BMD: 0.996 g/cm2 T-Score: - 0.1 Z-Score: + 0.6 Change from prior in 2018: ??Decrease 9.1%. Right hip BMD: 1.066 g/cm2 T-Score: + 0.5 Z-Score: + 1.1 Change from prior in 2018: ??Decrease 2.1%. WHO criteria: Normal: T-score at or above -1 SD Osteopenia: T-score between -1.1 and -2.4 SD Osteoporosis: T-score at or below -2.5 SD Margaretmallorie Jansennasrin DO DEXA * XR MAMMO BILAT SCREENING [[id number]] (05/16/2023 2:52 PM FOURDRINIER MACHINE OPERATOR) Anatomical Region Laterality Modality BREASTS, Breast Left, Breast Right Bilateral Mammography Impressions 05/16/2023 4:33 PM FOURDRINIER MACHINE OPERATOR ??There is no radiographic evidence for malignancy. ??Recommend annual mammograms. MAMMOGRAM ASSESSMENT: ??ACR 1 Negative PATIENTS: You will also receive a letter with your examination results in an easy to read format. ??If you have questions about your results, please contact your referring provider. Narrative 05/16/2023 4:33 PM FOURDRINIER MACHINE OPERATOR For Patients: As a result of the Century Cures Act, medical imaging exams and procedure reports are released immediately into your electronic medical record. You may view this report before your referring provider. If you have questions, please contact your health care provider. XR MAMMO BILAT SCREENING [[id number]] CLINICAL HISTORY: ??This is an asymptomatic 72 y.o. patient. INDICATION FOR EXAM: Mammogram Screening. TECHNIQUE: CC & MLO views were obtained. ??This study was evaluated with the assistance of Computer-Aided Detection. COMPARISON FILM: Yes 05/15/22 [employer] 04/16/21 [employer] FINDINGS: ??The breasts have scattered areas of fibroglandular density. There are no dominant masses, suspicious micro calcifications or areas of architectural distortion. Margareti Inderjitqra DO MAMMO * ANTI HCV [[id number]] (03/23/2014 7:39 AM FOURDRINIER MACHINE OPERATOR) HEPATITIS C ANTIBODY Non-Reacti ve Non-Reacti ve 03/23/2014 3:55 PM FOURDRINIER MACHINE OPERATOR [facility] Blood specimen (specimen) BLOOD SPECIMEN / Unknown Venipuncture / Unknown 03/23/2014 7:39 AM FOURDRINIER MACHINE OPERATOR 03/23/2014 7:39 AM FOURDRINIER MACHINE OPERATOR Narrative [facility] - 03/23/2014 3:55 PM FOURDRINIER MACHINE OPERATOR Antibodies to HCV not detected; does not exclude the possibility of exposure to HCV. Melody Ricardo DO SEND OUTS [facility] 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
== END 2024-03-11 14:30 | disposition home or self-care (01) ==
LOC: ED 14:38
PROVIDERS: Emergency Provider Emergency Medicine Emergency Medical Services; PCP Student in an Organized Health Care Education/Training Program
DX: R11.0 Nausea (principal); Z98.890 Other specified postprocedural states
CPT/HCPCS: 99283; 99284; A9270

== ENCOUNTER 2024-06-07 13:45 | Outpatient (RCR) | payer MEDICARE, BC, SELFPAY ==
--- NOTE | 2024-03-15 17:05 | PT.OPEX ---
PT [facility] Outpatient Eval PT [facility] Outpatient Eval Start: 03/02/24 15:27 Freq: Status: Active Protocol: Document 03/15/24 10:14 MLS (Rec: 03/15/24 17:03 MLS [id number]) E-signed By Nathalia Flores DPT Physical Therapy Outpatient Evaluation Insurance Information Recert Due Date 06/12/24 Insurance Name Medicare B,Blue Cross/Blue Shield Medical Diagnosis M17.12 primary OA left knee Z96.652 presence of left artificial knee joint s/p left TKA on 03/08/24 Treating Diagnosis Left TKA protocol Referring MD Dr. Fontaine Subjective Subjective Patient is a 73 year old female who presents to physical therapy s/p left TKA on 03/08/24. She states that her surgery was postponed because she got covid. She states that she stayed over night one night. She states that surgery went well. She reports that she went home the next day. She states that on day 4 she had nausea and went back and forth with her clinic. She states that her blood pressure was rising. She reports that she ended up at the ER and she was given Zofran. She states that she still has nausea on and off, about once a day. She states that the exercises are going well and she gets really tired . She states that she is sleeping great at night. She states that she is not resting much throughout the day. She is taking pain meds as needed . Significant past medical history includes hypertension and arthritis. Patient would like to have less pain and full range of motion through physical therapy sessions. Pain Comments Today: 1/10 on a 0-10 pain scale with 10 = extreme pain At its worst: 7/10 At its best: 1/10 Current Work Status Retired Precautions Weight Bearing Status Weight Bear as Tolerated Therapy Limitations/Systems Review Not Limited Objective Other/Pertinent Objective GAIT/FUNCTIONAL MOBILITY Ambulates with FWW KNEE ROM Right: WNL Left: Extension/Flexion: -10- 85 HIP ROM Grossly tested WNL LLE MMT: Hip flexion: R 5/5 L 4-/5 Hip abduction: R 5/5 L 4/5 Hip extension: R 5/5 L 4-/5 Knee flexion: R 5/5 L 4-/5 Knee extension: R 5/5 L 4-/5 Reviewed/demonstrated on frequency to perform HEP post operatively including: long sitting quad ankle pumps supine heel slide with strap supine quad sets supine SAQ SLR with quad set seated long arc quad seated knee flexion AAROM supine knee extension stretch on towel roll Extensive discussion and education on what to expect post operatively. Time was spent discussing home modifications, Assistive devices, pain control, fall prevention, hospital stay time line, and assist needed for activities post surgically. Pt questions were answered and demonstrated understanding. Assessment Assessment/Impression Pt is a 73 year old female who presents to PT s/p left TKA on 03/08/24. Patient also has notable objective findings including limited ROM, tenderness to palpation, and decreased strength which are also likely contributing to the problem. Patient is a good candidate for skilled therapy to target deficits described above. Skilled PT intervention is necessary for use of therapeutic exercise manual therapy, neuromuscular re- education, gait training, and therapeutic activity. Functional impairments include difficulty with: standing, walking, driving, exercising, sleeping and ADLs. See appropriate sections of PT eval for complete list of goals and POC. D/C plan and criteria is for pt to achieve the goals as listed below or until max rehab potential is met. Pt was agreeable with plan of care and goals established. Primary Functional Limitations standing walking driving exercising ADLs sleeping Plan of Care Rehabilitation Potential Good Physical Therapy Goals Within 10-12 weeks: 1) Pt will improve knee AROM at least 0 to 120 for improved sit to stand transfers 2) Pt will demonstrate negative extensor lag during straight leg raise exercise with ability to complete at least 15 reps with 5 sec hold to improve strength for ambulation 3) Patient will demonstrate/ report ability to walk for 15 minutes w/SPC with pain level <1/10, to allow for community and household ambulation. 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 Coordination/Communication With Referral Source Treatment Plan/Direct Interventions Gait Training,Ice/Cold/ Vasopneumatic,Manual Therapy, Neuromuscular Re-ed, Therapeutic Activities, Therapeutic Exercises Patient Will Be Discharged From Therapy Independently Progressing Evaluation Billing Untimed Code Treatment Minutes 20 Complexity Low Certification Information Provider Signature Required Yes Provider Signature Shows Agreement With POC & Medical Necessity Physician NPI Number Write NPI# Here Physician Comment/Change : Physician Signature & Date Requested Please Sign/Date Here
--- NOTE | 2024-06-07 14:22 | PT.OPDNX ---
PT [facility] Daily [facility] PT [facility] Daily Note Start: 03/02/24 15:27 Freq: Status: Active Protocol: Document 06/07/24 08:58 MLS (Rec: 06/07/24 14:21 MLS [id number]) E-signed By Nathalia Flores DPT PT OP Daily Progress Note Visit Information Note Type Daily Note Visit Number [id number] Insurance Information Recert Due Date 06/12/24 Insurance Name Medicare B,[employer] Medical Diagnosis M17.12 primary OA left knee Z96.652 presence of left artificial knee joint s/p left TKA on 03/08/24 Treating Diagnosis Left TKA protocol Referring MD Dr. Fontaine Subjective Subjective Patient is a 73 year old female who presents to physical therapy s/p left TKA on 03/08/24. She states that she has been feeling good but that her leg has days where it feels like lead in her knee . She states that she did do 25 min on the bike, then did the machines and then back to bike. She states that it feels very tight as is concerned about getting through the winter. She states that she sleeps through the night. She states that the heaviness and tightness feeling is usually after exercise. Pain Comments Today: 2/10 on a 0-10 pain scale with 10 = extreme pain Precautions Weight Bearing Status Full Weight Bearing Objective Other/Pertinent Objective GAIT/FUNCTIONAL MOBILITY Ambulates with FWW KNEE ROM Right: WNL Left: Extension/Flexion: -10- 85 HIP ROM Grossly tested WNL LLE MMT: Hip flexion: R 5/5 L 4-/5 Hip abduction: R 5/5 L 4/5 Hip extension: R 5/5 L 4-/5 Knee flexion: R 5/5 L 4-/5 Knee extension: R 5/5 L 4-/5 Patient Instructed in Risks/Benefits Yes Therapeutic Exercise Therapeutic Exercise: To Restore Manual flexion and extension Functional Status stretching single leg stance recumbent bike, seat level 5, 6 min forward revolutions stair stretching standing abduction machine plate 1, 2x 10 Leg press 100# at notch 3 x 15 single leg press x 15, notch 3 , 60# knee extension 2 plates x 15, left leg only plate 1 x 10 HS curl machine 3 plates x 15 gastroc stretch on stairs heel raises Step up on step heel raises at bar, hip flexion at bar walking forward and backwards , high knees, side stepping long sitting quad supine heel slide with strap supine quad sets supine SAQ SLR with quad set seated long arc quad seated knee flexion AAROM supine knee extension stretch on towel roll Sent home [facility] Access Code: [email or web address] URL: [email or web address] Date: 04/19/2024 Prepared by: Nathalia Flores Exercises - Sitting Knee Extension with Resistance - 1 x daily - 7 x weekly - 3 sets - 10 reps - Side Stepping with Resistance at Ankles - 1 x daily - 7 x weekly - 3 sets - 10 reps - Standing Hamstring Curl with Resistance - 1 x daily - 7 x weekly - 3 sets - 10 reps Manual Therapy Techniques Manual Therapy Minutes (minutes) 30 Manual Therapy Techniques Manual techniques applied to left quad, hamstring and IT- band to reduce m tightness, tenderness and swelling Treatment Minutes Timed Code Treatment Minutes 30 Total Treatment Time 30 Billing Units Manual Therapy Units 2 Assessment/Impression Assessment/Impression Pt is a 73 year old female who presents to PT s/p left TKA on 03/08/24. Patient started session at -3-120 flexion/ extension and progressed to 0- 123 with over pressure. She is concerned about the amount of tightness in her knee and surrounding musculature. She is going to try single leg knee extension at the gym instead of double leg due to some right knee pain. Skilled PT intervention is necessary for use of therapeutic exercise manual therapy, neuromuscular re-education, gait training, and therapeutic activity. D/C plan and criteria is for pt to achieve the goals as listed below or until max rehab potential is met. Plan of Care Physical Therapy Goals Within 10-12 weeks: 1) Pt will improve knee AROM at least 0 to 120 for improved sit to stand transfers 2) Pt will demonstrate negative extensor lag during straight leg raise exercise with ability to complete at least 15 reps with 5 sec hold to improve strength for ambulation 3) Patient will demonstrate/ report ability to walk for 15 minutes w/SPC with pain level <1/10, to allow for community and household ambulation. 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 Daily Plan of Care Continue per POC Recertification Information Initial Certification Date 03/15/24 Recertification Start Date 06/07/24 Recertification Due Date 06/12/24 Reasons to Continue Skilled Therapy Hailey continues to struggle with tightness along lateral quad and ITB. Knee AROM has progressed nicely to 0-120. [facility] including [facility] rec[facility] bike and multiple strengthening machines. would like to continue with PT for 4-6 additional visits to work on muscular tightness. Rehabilitation Potential Good Continued Plan of Care and Interventions manual therapy ther ex Provider [employer] Agreement With POC & Medical Necessity Physician Comment/Change Comment or Changes Physician NPI Number #
== END 2024-08-23 09:41 | disposition home or self-care (01) ==
PROVIDERS: PCP Student in an Organized Health Care Education/Training Program; Visit Provider Orthopaedic Surgery Sports Medicine
DX: M17.12 Unilateral primary osteoarthritis, left knee (principal); Z96.652 Presence of left artificial knee joint; Z51.89 Encounter for other specified aftercare
CPT/HCPCS: 97110; 97140; 97161; 97164